=== PATIENT | female | born 1950 | race Caucasian/White ===

== ENCOUNTER 2020-11-22 11:41 | Outpatient (CLI) | payer MEDICARE, SELFPAY ==
--- NOTE | ~2020-11-22 | CT_ITS ---
EXAMINATION: CT brain wo/w con EXAM DATE: 11/22/2020 12:39 INDICATION: [place] pain/ Headaches. Blurred vision. TECHNIQUE: Spiral CT of the head was performed without contrast. Axial, coronal and sagittal images were reviewed. Patient was then injected with 100 cc Omnipaque 350 intravenous contrast and reimaged. Postcontrast axial, coronal, sagittal reformatted images reviewed. The dose-length product (DLP) for this examination was 1210.67 mGy-cm. The exposure was tailored according to patient size, and it erative reconstruction (ASIR) was used as additional dose reduction technique. There is no prior julia dy for comparison. FINDINGS: There is no acute intraparenchymal hemorrhage. No evidence of intraparenchymal brain mass lesion. No evidence of acute infarction. Please note that initial head CT has limited sensitivity f or small or acute infarctions. There is mild to moderate periventricular and subcortical hypodensity, nonspecific but probably related to small vessel ischemic disease. There is mild to moderate promi nence of the sulci and ventricles related to cerebral atrophy. There is intracranial carotid arteri osclerosis. There are no extra-axial collections. There is no mass effect or midline shift. Patien t has had left-sided ocular lens surgery. Soft tissue is unremarkable. The visualized sinuses and mastoid air cells are well aerated. Slight asymmetry in the vascularity to the occipital lobes, left being more prominent but no developm ental venous anomaly, enhancing nidus or other abnormality within the brain parenchyma. No loss of gr ay-white differentiation to suggest this is luxury perfusion from infarction. Additionally, the the i nternal cerebral veins, straight, transverse, sagittal and sigmoid sinuses are patent, nonthrombosed. IMPRESSION: 1. No acute intracranial findings suspected. 2. Some asymmetry in left occipital vascularity without any underlying parenchymal abnormality. Prob ably not clinically significant finding. Reviewed, dictated and finalized at location A. IMPRESSION: 1. No acute intracranial findings suspected. 2. Some asymmetry in left occipital vascularity without any underlying parench ymal abnormality. Probably not clinically significant finding.
[2020-11-22 12:16] LABS: CRP < 0.5 mg/dL (<1.0)
[2020-11-22 12:21] LABS: Erythrocyte Sedimentation Rate 33 mm/hr (0-20)
[2020-11-22 12:23] LABS: Estimated Glomerular Filt Rate > 60
== END 2020-11-22 11:42 | disposition home or self-care (01) ==
LOC: ANHIMG 11:42
PROVIDERS: PCP Internal Medicine; Visit Provider Internal Medicine
DX: R51.9 Headache, unspecified (principal)
CPT/HCPCS: 36415; 70470; 85652; 86140; Q9967

== ENCOUNTER → 2020-11-26 01:26 | Outpatient (CLI) | payer MEDICARE, SELFPAY ==
[2020-11-26 19:13] LABS: SARS-CoV-2 RNA PCR Negative
== END ==
PROVIDERS: Internal Medicine Gastroenterology; PCP Internal Medicine; Visit Provider Otolaryngology
DX: Z01.812 Encounter for preprocedural laboratory examination (principal); Z20.822 Contact with and (suspected) exposure to COVID-19
CPT/HCPCS: C9803; U0003; U0005

== ENCOUNTER 2020-11-29 01:48 | Day surgery (SDC) | payer MEDICARE, SELFPAY ==
[2020-11-25 13:44] VITALS: BMI 29.9
[2020-11-29] VITALS (8 sets, daily range): BP systolic 123–139; BP diastolic 54–71; PULSE 73–81; RESP 16; TEMP 36.8; O2SAT 96–98
--- NOTE | 2020-11-29 06:07 | PM.HPGS ---
History of Present Illness History of Present Illness Consent: Risks, benefits, and alternatives have been discussed and questions answered. Patient agrees to proceed with procedure. Chief complaint: temporal arteritis Narrative: Dyan Larry is a 70 year old female complaints of the headaches by left temporal in nature Review of Systems Review of Systems: All systems reviewed & are unremarkable except as noted in HPI and below PMFSH Past Medical History Medical History Anemia Blood donor BMI 29.0-29.9,adult BMI 30.0-30.9,adult DM type 2 (diabetes mellitus, type 2) Dysphagia Encounter for routine adult health examination with abnormal findings Encounter for routine adult health examination without abnormal findings Follow up Frequent headaches Grief Hearing loss Heme positive stool HTN (hypertension) Hyperlipidemia Insomnia Iron deficiency anemia 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 On nursing home drug therapy Psoriasis Reactive airway disease Varicose veins of both lower extremities Vitamin D deficiency Family History Family History Father Family history of cardiovascular disease Family history of heart disease in male family member before age 55 Social History Social History Smoking status: Never smoker Second hand tobacco smoke exposure: No Alcohol intake: current Drinks per week: 1 Substance use: never Substance use type: does not use Living arrangements: with family Additional living arrangements comments: HUSB Spiritual care concerns: No Meds Home Medications and Allergies Home Medications Medication Instructions Recorded Confirmed Type calcium 600 mg-D3 800 unit-mag11 1 tablet PO DAILY 09/10/19 11/25/20 History 50 vj-pibu-amkthi-jael-s.borat tablet B-complex with vitamin C 1 tablet PO DAILY 02/09/20 11/25/20 History omeprazole 40 mg capsule,delayed 40 mg PO BID #180 cap 11/22/20 11/25/20 Rx release iron polysacch cplx 150 mg 1 cap PO DAILY 11/23/20 11/25/20 History iron-vit B12 25 mcg-folic acid 1 mg capsule apremilast 30 mg PO BID 11/25/20 11/25/20 History atorvastatin 20 mg PO DAILY 11/25/20 11/25/20 History lisinopril 20 mg PO QAM 11/25/20 11/25/20 History metformin 1,000 mg PO BID 11/25/20 11/25/20 History prednisone 60 mg PO DAILY 11/25/20 11/25/20 History psyllium husk [Daily Fiber] 0.4 g PO DAILY 11/25/20 11/25/20 History trazodone 50 mg PO HS 11/25/20 11/25/20 History Allergies Allergy/AdvReac Type Severity Reaction Status Date / Time shellfish derived Allergy Unknown THROAT Verified 11/25/20 13:38 SWELLING EGGS Allergy Mild THROAT Uncoded 11/25/20 13:38 SWELLS LACTOSE AdvReac Mild Diarrhea Uncoded 11/25/20 13:38 Exam Narrative: Exam Narrative: chest clear heart without murmurs prominent left temporal artery pulsation Assessment and Plan Additional Plan plan is a left temporal artery biopsy
--- NOTE | 2020-11-29 06:08 | WPDHPUPDATE1 ---
History and Physical Update Update Date/Time: 11/29/20 06:08 History and Physical has been reviewed, including an updated exam of the patient. There are NO changes in the patient's condition. Risks, benefits, and alternatives have been discussed and questions answered. Patient agrees to proceed with procedure.
[2020-11-29] MEDS: LIDO 1%/EPINEPHRINE 1:100,000 50 ML VIAL INFILTRATE (08:53)
[2020-11-29] MEDS: NEOMYCIN/POLYMYXIN/BACITRACIN OINTMENT 15 GM TUBE 1 APPLIC TOPICAL (08:54)
--- NOTE | 2020-11-29 08:56 | PM.PROC ---
Procedure Note - Detailed Date of procedure: 11/29/20 Pre-op diagnosis: temporal arteritis Post-op diagnosis: same Procedure performed: Left temporal artery biopsy Description of procedure: Patient was prepped and draped with local anesthesia with 1% xylocaine 1-1000 epinephrine the pulse was palpated and incision was made above the dissection carried down to the temporalis fascia the artery was identified clamped on both sides in 2 different areas cut and tied with the 3 0 chromic 3 0 silk sent for pathologic examination fresh incision was then closed with interrupted [place] nylon Anesthesia: GLMA Surgeon: Yehuda Cardoso MD Estimated blood loss (mL): 0 Drains: No Packing: No Pathology: yes Complications: No immediate complications Condition: stable Disposition: PACU Findings: Left temporal artery
--- NOTE | 2020-11-29 10:11 | SUR.PHASEII ---
CALLED DR HENRY FOR FURTHER DC INSTRUCTIONS, MAY SHOWER CAREFULLY, CALL FOR FOLLOW UP APPOINTMENT FOR 1 WEEK TO REMOVE STITCHES.
== END 2020-11-29 09:45 | disposition home or self-care (01) ==
PROVIDERS: PCP Internal Medicine; Visit Provider Otolaryngology
PROC: (CPT 37609; principal; 2020-11-29 08:30)
DX: R51.9 Headache, unspecified (principal); I10 Essential (primary) hypertension; E78.5 Hyperlipidemia, unspecified; E11.9 Type 2 diabetes mellitus without complications; D50.9 Iron deficiency anemia, unspecified; D64.9 Anemia, unspecified; L40.9 Psoriasis, unspecified; E55.9 Vitamin D deficiency, unspecified; Z79.84 Long term (current) use of oral hypoglycemic drugs
CPT/HCPCS: 37609; 88305; 88313; A9270; C9803; U0003; U0005

== ENCOUNTER → 2020-12-06 00:26 | Outpatient (CLI) | payer MEDICARE, SELFPAY ==
[2020-12-06 18:30] LABS: SARS-CoV-2 RNA PCR Negative
== END ==
PROVIDERS: PCP Internal Medicine; Visit Provider Internal Medicine Gastroenterology
DX: Z01.812 Encounter for preprocedural laboratory examination (principal); Z20.822 Contact with and (suspected) exposure to COVID-19
CPT/HCPCS: C9803; U0003; U0005

== ENCOUNTER 2020-12-09 04:37 | Day surgery (SDC) | payer MEDICARE, SELFPAY ==
[2020-11-25 12:48] VITALS: BMI 29.1
[2020-12-09 06:15] VITALS: BP 109/86; PULSE 78; RESP 16; TEMP 36.9; O2SAT 98
[2020-12-09] MEDS: LACTATED RINGERS 1,000 ML 150 ML IV CONT (06:33)
[2020-12-09 06:37] LABS: Glucose Point of Care 89 (65-105)
--- NOTE | 2020-12-09 07:04 | WPDANESEPPF ---
Anes - Initial Pre Proc Eval Procedure: Operation Date: 12/09/20 07:30 Proposed Procedures p Esophagogastroduodenoscopy & Colonoscopy - Low Mistry MD Date/Time: 12/09/20 07:04 Surgeon: Low Mistry MD Pre Op Diagnosis: abn stools, iron def. anemia Patient Data Age: 70 Gender: F Height: 5 ft 1 in Weight: 71 kg Last Vital Signs Temp 98.4 F 12/09/20 06:15 Pulse 78 12/09/20 06:15 Resp 16 12/09/20 06:15 BP 109/86 12/09/20 06:15 Pulse Ox 98 12/09/20 06:15 Allergies Allergy/AdvReac Type Severity Reaction Status Date / Time egg Allergy Severe Swelling Verified 12/09/20 06:13 of Lip/Tongue/Throat shellfish derived Allergy Severe THROAT Verified 12/09/20 06:13 SWELLING EGGS Allergy Mild THROAT Uncoded 12/09/20 06:13 SWELLS LACTOSE AdvReac Mild Diarrhea Uncoded 12/09/20 06:13 Home Medications Medication Instructions Recorded Confirmed Type calcium 600 mg-D3 800 unit-mag11 1 tablet PO DAILY 09/10/19 12/09/20 History 50 jb-dpdh-reovbq-jael-s.borat tablet B-complex with vitamin C 1 tablet PO DAILY 02/09/20 12/09/20 History omeprazole 40 mg capsule,delayed 40 mg PO BID #180 cap 11/22/20 12/09/20 Rx release iron polysacch cplx 150 mg 1 cap PO DAILY 11/23/20 12/09/20 History iron-vit B12 25 mcg-folic acid 1 mg capsule apremilast 30 mg PO BID 11/25/20 12/09/20 History atorvastatin 20 mg PO DAILY 11/25/20 12/09/20 History lisinopril 20 mg PO QAM 11/25/20 12/09/20 History metformin 1,000 mg PO BID 11/25/20 12/09/20 History prednisone 60 mg PO DAILY 11/25/20 12/09/20 History psyllium husk [Daily Fiber] 0.4 g PO DAILY 11/25/20 12/09/20 History trazodone 50 mg PO HS 11/25/20 12/09/20 History Laboratory Tests 12/09/20 06:26 POC Capillary Glucose 89 mg/dl mg/dl (65-105) Patient hx anesthesia problems: none Family hx anesthesia problems: none PMFSH Past Medical History Medical History Anemia Blood donor BMI 29.0-29.9,adult BMI 30.0-30.9,adult DM type 2 (diabetes mellitus, type 2) Dysphagia Encounter for routine adult health examination with abnormal findings Encounter for routine adult health examination without abnormal findings Follow up Frequent headaches Grief Hearing loss Heme positive stool HTN (hypertension) Hyperlipidemia Insomnia Iron deficiency anemia 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 On long-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 drug therapy Psoriasis Reactive airway disease Varicose veins of both lower extremities Vitamin D deficiency Family History Family History Father Family history of cardiovascular disease Family history of heart disease in male family member before age 55 Social History Social History Smoking status: Never smoker Second hand tobacco smoke exposure: No Alcohol intake: current Drinks per week: 1 Substance use: never Substance use type: does not use Living arrangements: with family Additional living arrangements comments: HUSB Spiritual care concerns: No Anes - Eval Final PreProcedure Day of Procedure 12/09/20 07:04 Patient weight: normal Heart: regular rate and rhythm Lungs: clear to auscultation Airway: Mallampati scale class II Neurological: alert and oriented Last oral intake: >/= 8 hours ASA classification: III Emergent: no Anesthetic plan: proceed Anesthesia type and monitoring: general GIVS and standard monitoring Informed Consent: The patient's anesthetic plan and its attendant risks and benefits were discussed with the patient/family/POA. Questions were solicited and answers provided to the satisfaction of the patient/family/POA.
--- NOTE | 2020-12-09 07:28 | PM.HPGS ---
History of Present Illness History of Present Illness Consent: Risks, benefits, and alternatives have been discussed and questions answered. Patient agrees to proceed with procedure. Chief complaint: abn stools, iron def. anemia Narrative: Dyan Larry is a 70 year old female with everardo, fobt + and colon polyps about 4 years ago, using omeprazole Review of Systems Constitutional: Constitutional: Denies headache(s) and Denies weakness Eyes: Eyes: Denies blurry vision ENT: Reports Normal hearing present, Denies headache(s) and Denies neck pain Cardiovascular: Cardiovascular: Denies chest pain and Denies dyspnea Respiratory: Respiratory: Denies dyspnea Gastrointestinal: Gastrointestinal: Reports no additional gastrointestinal complaints Genitourinary: Genitourinary: Denies dysuria Musculoskeletal: Musculoskeletal: Denies neck pain Integumentary/Breasts: Skin/Breast: Denies dry skin Neurologic: Reports Normal hearing present, Denies headache(s) and Denies weakness Psychiatric: Psychiatric: Denies anxiety Endocrine: Endocrine: Denies change in body appearance Hematologic/Lymphatic: Hematologic/Lymphatic: Denies easy bleeding Allergic/Immunologic: Allergic/Immunologic: Denies urticaria PMFSH Past Medical History Medical History Anemia Blood donor BMI 29.0-29.9,adult BMI 30.0-30.9,adult DM type 2 (diabetes mellitus, type 2) Dysphagia Encounter for routine adult health examination with abnormal findings Encounter for routine adult health examination without abnormal findings Follow up Frequent headaches Grief Hearing loss Heme positive stool HTN (hypertension) Hyperlipidemia Insomnia Iron deficiency anemia 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 On [facility] drug therapy Psoriasis Reactive airway disease Varicose veins of both lower extremities Vitamin D deficiency Family History Family History Father Family history of cardiovascular disease Family history of heart disease in male family member before age 55 Social History Social History Smoking status: Never smoker Second hand tobacco smoke exposure: No Alcohol intake: current Drinks per week: 1 Substance use: never Substance use type: does not use Living arrangements: with family Additional living arrangements comments: HUSB Spiritual care concerns: No Meds Home Medications and Allergies Home Medications Medication Instructions Recorded Confirmed Type calcium 600 mg-D3 800 unit-mag11 1 tablet PO DAILY 09/10/19 12/09/20 History 50 hd-kazx-ewyqwi-jael-s.borat tablet B-complex with vitamin C 1 tablet PO DAILY 02/09/20 12/09/20 History omeprazole 40 mg capsule,delayed 40 mg PO BID #180 cap 11/22/20 12/09/20 Rx release iron polysacch cplx 150 mg 1 cap PO DAILY 11/23/20 12/09/20 History iron-vit B12 25 mcg-folic acid 1 mg capsule apremilast 30 mg PO BID 11/25/20 12/09/20 History atorvastatin 20 mg PO DAILY 11/25/20 12/09/20 History lisinopril 20 mg PO QAM 11/25/20 12/09/20 History metformin 1,000 mg PO BID 11/25/20 12/09/20 History prednisone 60 mg PO DAILY 11/25/20 12/09/20 History psyllium husk [Daily Fiber] 0.4 g PO DAILY 11/25/20 12/09/20 History trazodone 50 mg PO HS 11/25/20 12/09/20 History Allergies Allergy/AdvReac Type Severity Reaction Status Date / Time egg Allergy Severe Swelling Verified 12/09/20 06:13 of Lip/Tongue/Throat shellfish derived Allergy Severe THROAT Verified 12/09/20 06:13 SWELLING EGGS Allergy Mild THROAT Uncoded 12/09/20 06:13 SWELLS LACTOSE AdvReac Mild Diarrhea Uncoded 12/09/20 06:13 Vital Signs Vital Signs - 24 hr 12/09/20 06:15 Temperature 98.4 F Pulse Rate 78 Respiratory Rate 16 Blood Pressure 109/86 Pulse Oximetry 98 Exam Const: General: comfortable and no acute d
[2020-12-09] MEDS: BENZOCAINE (*SP) 60 ML SPRAY CAN (HURRICAINE) 1 SPRAY MUCOUS MEM (07:41)
[2020-12-09 07:57] VITALS: BP 121/69; PULSE 72; RESP 19; O2SAT 100
[2020-12-09 08:07] VITALS: BP 125/73; PULSE 70; RESP 17; O2SAT 100
[2020-12-09 08:17] VITALS: BP 124/73; PULSE 75; RESP 16; O2SAT 100
== END 2020-12-09 08:30 | disposition home or self-care (01) ==
PROVIDERS: PCP Internal Medicine; Visit Provider Internal Medicine Gastroenterology
PROC: 0DJ08ZZ Inspection of Upper Intestinal Tract, Via Natural or Artificial Opening Endoscopic (ICD-10-PCS; CPT 43235; principal; 2020-12-09 07:30)
DX: D50.0 Iron deficiency anemia secondary to blood loss (chronic) (principal); K92.1 Melena; D12.3 Benign neoplasm of transverse colon; K29.50 Unspecified chronic gastritis without bleeding; K57.30 Diverticulosis of large intestine without perforation or abscess without bleeding; K64.4 Residual hemorrhoidal skin tags; R13.10 Dysphagia, unspecified; I10 Essential (primary) hypertension; E78.5 Hyperlipidemia, unspecified; L40.9 Psoriasis, unspecified; E55.9 Vitamin D deficiency, unspecified; Z79.84 Long term (current) use of oral hypoglycemic drugs
CPT/HCPCS: 45385; 43239; 88305; C9803; J2704; J7120; U0003; U0005

== ENCOUNTER 2025-03-24 09:48 | Outpatient (CLI) | payer MEDICARE, SELFPAY ==
--- NOTE | ~2025-03-24 | US_ITS ---
LEFT LOWER EXTREMITY VENOUS ULTRASOUND Ordering provider: Spenser Meyer MD History: . HOLD and Call . Comparison: None. FINDINGS: --COMMON FEMORAL: Thrombosed --PROXIMAL SUPERFICIAL FEMORAL: Thrombosed --DISTAL SUPERFICIAL FEMORAL and wall --POPLITEAL: Thrombosed --POSTERIOR TIBIAL: Patent and free of thrombus. Normal compressibility, phasic flow and augmentation . IMPRESSION: DVT is seen in the left lower extremity veins. Physician: Spenser Meyer MD office Was notified with the result of the patient at 11:00 AM on March 24, 2025. Reviewed, dictated and finalized at location A.
--- OUTSIDE RECORDS SUMMARY | 2025-03-24 09:55 | XMS_ITS | Encounter Summary ---
Author Organization [facility] Address [address] [place] [address] Care Team Providers Care Electrical Wirer Name Role Phone Spenser Meyer MD Primary Care Provider [phone] Encounter Details Date Type Department Care Team (Late st Contact Info) Description 11/22/2017 Abstract [facility] CONVERSION [address] [place] [address] , Generic MD Ashlee Social History Tobacco Use Types Packs/Day Years Used Date Smoking Tobacco: Never Assessed Comments Unknown Sex and Gender Information Value Date Recorded Sex Assigned at Not on file Legal Sex Female 7:05 PM CDT Gender Identity Female 12/11/2021 10:28 AM CDT Sexual Orientation Not on file documented as of this encounter Plan of Treatment Not on file documented as of this encounter Visit Diagnoses Not on filedocumented in this encounter Care Teams Electrical Wirer Relationship Specialty Start Date End Date Spenser Meyer MD [address] [facility] [address] [place] [id number] PCP - General INTERNAL MEDICINE 06/11/19 documented as of this encounter
--- OUTSIDE RECORDS SUMMARY | 2025-03-24 09:55 | XMS_ITS | Clinical Summary ---
Author Organization [facility] [address] Address [address] [place] [address] Care Team Providers Care Drivers' Cash Clerk Name Role Phone Spenser Meyer MD Primary Care Provider [phone] Allergies Active Allergy Reactions Criticality Noted Date Comments Egg Unknown 12/07/2021 Medications lisinopriL (PRINIVIL,ZESTR IL) 5 mg tablet Take 1 tablet (5 mg total) by mouth daily 3 Active atorvastatin (LIPITOR) 20 mg tablet Take 1 tablet (20 mg total) by mouth daily 3 Active metFORMIN XR (GLUCOPHAGE XR) 500 mg 24 hr tablet Take 1 tablet (500 mg total) by mouth daily 3 Active ferrous sulfate 325 mg (65 mg of elemental iron) tablet Take 1 tablet (325 mg total) by mouth 2 (two) times a day Active omeprazole (PriLOSEC) 40 mg capsule Take 1 capsule (40 mg total) by mouth 2 (two) times a day 3 Active traZODone (DESYREL) 50 mg tablet TAKE 2 TO 3 TABLETS BY MOUTH EVERY DAY AT BEDTIME 3 Active sertraline (ZOLOFT) 100 mg tablet Take 1 tablet (100 mg total) by mouth every morning 3 Active memantine (NAMENDA) 10 mg tablet Take 1 tablet (10 mg total) by mouth 2 (two) times a day 3 Active rivastigmine (EXELON) 6 mg capsule Take 1 capsule (6 mg total) by mouth 2 (two) times a day 3 Active LORazepam (ATIVAN) 0.5 mg tabletIndicatio ns:anxiety Take 1 tablet (0.5 mg total) by mouth as needed for anxiety (take one tablet 30 minutes prior to the procedure, may take an additional tablet if needed) 2 tablet 4 Active Active Problems Problem Noted Date Diagnosed Date 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 01/29/2023 Memory loss or impairment 01/29/2023 Medical History Medical History Date Comments Hypertension Diabetes mellitus (HCC) Family History Medical History Relation Name Comments Alzheimer's disease Father onset mi d 70s, age 80 Relation Name Status Comments Father Social History Tobacco Use Types Packs/Day Years Used Date Smoking Tobacco: Never Tobacco Cessation:Counseling Given: Not Answered Comments Unknown Sex and Gender Information Value Date Recorded Sex Assigned at Not on file Legal Sex Female 4:53 AM UNARMED SECURITY GUARD Gender Identity Not on file Sexual Orientation Not on file Occupation Industry Job 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 Not on file Not on file N ot on file Obstetrics History Last Filed Vital Signs Vital Sign Reading Time Taken Comments Blood Pressure 120/66 12/02/2023 10:56 AM CDT Pulse 70 12/02/2023 10:56 AM CDT Temperature 36.1 C (96.9 F) 12/02/2023 9:06 AM CDT Respiratory Rate 20 12/02/2023 10:56 AM CDT Oxygen Saturation 99% 12/02/2023 10:56 AM CDT Inhaled Oxygen Concentration - - Weight 59 kg (130 lb) 08/22/2023 10:36 AM UNARMED SECURITY GUARD Height 154.9 cm (5' 0.98) 08/22/2023 10:[address] Body Mass Index 24.58 08/22/2023 10:36 AM UNARMED SECURITY GUARD Plan of Treatment Health Maintenance Due Date Last Done Comments Breast Cancer Screening-Mammogram 1950 Colon Cancer Screening-Colonoscopy 1950 Depression Screening 1950 Fall Risk Assessment 1950 Hepatitis C Screening 1950 Osteoporosis Screening-Bone Density Scan 1950 DTaP/Tdap/Td Vaccine (1 - Tdap) 1962 Hepatitis B Screening 1969 Well Visit 65+ 2016 Covid-19 Vaccine (6 - 2023-2 5 season) 2024 06/21/2022, 02/23/2022, 07/19/2021, Additional history exists Influenza Vaccine (#1) 2025 07/17/2022 Zoster Vaccine Completed 03/31/2018, 12/09, 10/21/2017 Pneumococcal vaccine 65+ Completed 06/26/2021, 09/09 Insurance [employer] MEDICARE [facility] MEDICARE Care Teams Drivers' Cash Clerk Relationship Specialty Start Date End Date Spenser Meyer MD PCP - General Internal Medicine 12/04/22
--- OUTSIDE RECORDS SUMMARY | 2025-03-24 09:55 | XMS_ITS | Clinical Summary ---
Author Organization [facility] Address [address], [facility] [address] [place] [address] Phone Care Team Providers Care Wafer Fabrication Technician Name Role Phone Spenser Meyer MD Primary Care Provider [phone] Noah Hemphill DO Unavailable [phone] Allergies No known active allergies Medications polyethylene glycol (MIRALAX) Powder Use entire 255g bottle with 64oz of clear liquid as directed for colonoscopy prep. 255 g 0 7 Active Social History Tobacco Use Types Packs/Day Years Used Date Smoking Tobacco: Never Smokeless Tobacco: Never Alcohol Use Standard Drinks/Week Comments Yes 1 (1 standard drink = 0.6 oz pur e alcohol) Comments Unknown Sex and Gender Information Value Date Recorded Sex Assigned at Not on file Legal Sex Female 10:13 PM CDT Gender Identity Not on file Sexual Orientation Not on file Plan of Treatment Health Maintenance Due Date Last Done Comments DEXA Bone Density 1950 Hepatitis C Virus (HCV) Screening 1950 TdaP Immunization 1951 Cologuard 2001 Immunochemical Fecal Occult Blood 2001 Mammogram 2001 Pneumococcal Immunization (5 0+ years) (1 of 1 - PCV) 2001 Zoster Immunization (1 of 2) 2001 Colonoscopy 01/24/2022 01/24/2017 Colorectal Cancer Screening 01/24/2022 Influenza Immunization (#1) 2024 SARS-COV-2 Immunization ( season) 2024 Respiratory Syncytial Virus (RSV) Immunization (Adult) (1 - 1-dose 75+ series) 2026 Hepatitis B Immunization Aged Out No longer eligible based on patient's age to complete this topic Meningococcal Immunization (ACWY) Aged Out No longer eligible based on patient's age to complete this topic Rotavirus Immunization Aged Out No lo nger eligible based on patient's age to complete this topic Procedures Procedure Name Priority Date/Time Associated Diagnosis Comments COLONOSCOPY Routine 01/24/2017 from Last 3 Months or Most Recently Relevant to Health Maintenance Results * HM COLONOSCOPY (01/24/2017) Spenser Meyer MD PROCEDURE/MINOR SURGICAL ORDER AVE Final Result from Last 3 Months or Most Recently Relevant to Health Maintenance Insurance [id number] Care Teams Wafer Fabrication Technician Relationship Specialty Start Date End Date Spenser Meyer MD PCP - General Internal Medicine 09/26/16 Noah Hemphill DO Consulting Physician Gastroenterology 01/24/17
--- OUTSIDE RECORDS SUMMARY | 2025-03-24 09:55 | XMS_ITS | Referral Summary ---
Author Organization [facility] [address] Address [address] [place] [address] Care Team Providers Care Flake Drier Name Role Phone Spenser Meyer MD Primary Care Provider [phone] Allergies Active Allergy Reactions Criticality Noted Date [...] disturbance 01/29/2023 Memory loss or impairment 01/29/2023 Social History Tobacco Use Types Packs/Day Years Used Date Smoking Tobacco: Never Tobacco Cessation:Counseling Given: Not Answered Comments Unknown Sex and Gender Information Value Date Recorded Sex Assigned at Not on file Legal Sex Female 4:53 AM GENERAL MACHINIST Gender Identity Not on file Sexual Orientation Not on file Occupation Industry Job 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 End 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[employer], 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 Not on file Not on file N ot on file Last Filed Vital Signs Vital Sign Reading Time Taken Comments Blood Pressure 120/66 12/02/2023 10:56 AM CDT Pulse 70 12/02/2023 10:56 AM CDT Temperature 36.1 C (96.9 F) 12/02/2023 9:06 AM CDT Respiratory Rate 20 12/02/2023 10:56 AM CDT Oxygen Saturation 99% 12/02/2023 10:56 AM CDT Inhaled Oxygen Concentration - - Weight 59 kg (130 lb) 08/22/2023 10:36 AM GENERAL MACHINIST Height 154.9 cm (5' 0.98) 08/22/2023 10:[address] Body Mass Index 24.58 08/22/2023 10:36 AM GENERAL MACHINIST Plan of Treatment Not on file Insurance [employer] MEDICARE A[employer] MED[employer]ARE Care Teams Flake Drier Relationship Specialty Start Date End Date Spenser Meyer MD PCP - General Internal Medicine 12/04/22
--- OUTSIDE RECORDS SUMMARY | 2025-03-24 09:55 | XMS_ITS | Continuity of Care Document ---
Author Organization [facility] Address [address] [place] [address] Care Team Providers Care Leverman Name Role Phone Kayla Donovan MD Primary Care Provider [phone] Encounters Date Type Department Care Team Description 01/21/2025 Orders Only [facility] [address] [place] [address] Kayla Donovan MD 01/21/2025 Travel 01/21/2025 9:20 AM CDT - 01/21/2025 11:59 PM CDT Hospital Encounter [facility] [address] [place] [address] Kayla Doonvan MD Discharge Disposition: Home or Self Care (Routine Discharge) 09/11/2024 9:28 AM SENIOR C WEB DEVELOPER - 09/11/2024 11:59 PM SENIOR C WEB DEVELOPER Hospital Encounter [facility] [address] [place] [address] Kayla Donovan MD Discharge Disposition: Home or Self Care (Routine Discharge) 09/10/[address] [facility] [address] [place] [address] Kayla Donovan MD 09/10/2024 Travel 01/27/[address] [facility] [address] [place] [address] Kayla Donovan MD 01/27/2024 Travel 01/27/2024 1:08 PM CDT - 01/27/2024 11:59 PM CDT Hospital Encounter [facility] [address] [place] [address] Kayla Donovan MD Discharge Disposition: Home or Self Care (Routine Discharge) 09/10/[address] [facility] [address] [place] [address] Kayla Donovan MD 09/10/2023 Travel 09/10/2023 8:00 AM SENIOR C WEB DEVELOPER - 09/10/2023 11:59 PM SENIOR C WEB DEVELOPER Hospital Encounter [facility] [address] [place] [address] Kayla Donovan MD Discharge Disposition: Home or Self Care (Routine Discharge) 04/30/[address] [facility] [address] [address] Kayla Donovan MD 04/30/2023 Travel 04/30/2023 8:41 AM CDT - 04/30/2023 11:59 PM CDT Hospital Encounter [facility] [address] [place] [address] Kayla Donovan MD Discharge Disposition: Home or Self Care (Routine Discharge) 03/09/2023 Travel 03/09/2023 3:54 PM CDT - 03/09/2023 6:05 PM CDT Emergency [facility] Emergency Room [address] [place] [address] Ryan Hernández MD Abdominal Pain Discharge Disposition: Home or Self Care (Routine Discharge) 02/25/2023 Travel 02/25/2023 8:26 AM CDT - 02/25/2023 11:59 PM CDT Hospital Encounter [facility] [address] [place] [address] Kayla Donovan MD Discharge Disposition: Home or Self Care (Routine Discharge) 11/30/2022 Travel 11/30/2022 8:46 AM CDT - 11/30/2022 11:59 PM [place] [address] [facility] [place] [address] Kayla Donovan MD Discharge Disposition: Home or Self Care (Routine Discharge) 11/07/[address] [facility] [address] [place], [place] [address] [address] Kayla Donovna MD 11/07/2022 Travel 11/07/2022 9:47 AM SENIOR C WEB DEVELOPER - 11/07/2022 11:59 PM SENIOR C WEB DEVELOPER Hospital Encounter [facility] [address] [place] [address] Kayla Donovan MD Discharge Disposition: Home or Self Care (Routine Discharge) 06/18/[address] [facility] [address] [facility] [place] [address] Kayla Donovan MD 06/18/2022 Travel 06/18/2022 8:53 AM CDT - 06/18/2022 11:59 PM CDT Hospital En[facility] [address] [facility] [place] [address] Kayla Donovan MD Discharge Disposition: Home or Self Care (Routine Discharge) 02/20/2022 Travel 01/29/2022 Travel 01/29/2022 7:30 AM CDT - 01/29/2022 11:59 PM [place] [address] [facility] [place] [address] Kayla Donovan MD Discharge Disposition: Home or Self Care (Routine Discharge) 01/22/2022 Travel 01/18/[address] [facility] [address] [place] [address] Kayla Donovan MD 01/18/2022 Travel 01/18/2022 10:25 AM CDT - 01/18/2022 11:59 PM CDT Hospital Encounter [facility] [address] [place] [address] Kayla Donovan MD Discharge Disposition: Home or Self Care (Routine Discharge) 01/11/2022 Travel 01/09/2022 Travel 01/06/2022 Travel 01/05/[address] [facility] [address] [place] [address] Kayla Donovan MD 01/05/2022 7:25 AM CDT - 01/05/2022 11:59 PM CDT Hospital Encounter [facility] [address] [place] [address] Kayla Donovan MD Discharge Disposition: Home or Self Care (Routine Discharge) 01/04/2022 Travel 12/29/2021 Travel 12/25/2021 Travel 12/22/2021 Travel 12/21/2021 Travel 12/21/2021 10:43 AM CDT - 12/21/2021 11:59 PM CD[place] [address] [place] [address] Bairon Nam MD Discharge Disposition: Home or Self Care (Routine Discharge) 12/18/2021 Travel 12/18/2021 9:25 AM CDT - 12/18/2021 11:59 PM CDT Hospital Encounter [facility] [address] [place] [address] Kayla Donovan MD Discharge Disposition: Home or Self Care (Routine Discharge) 12/15/2021 Orders Only [facility] [address] [facility] [place] [address] Bairon Nam MD 12/15/2021 1:35 PM CDT - 12/15/2021 11:59 PM CDT Hospital Encounter [facility] [address] [place] [address] Bairon Nam MD Discharge Disposition: Home or Self Care (Routine Discharge) 12/15/2021 Travel 12/12/2021 Travel 12/07/2021 Travel 11/01/[address] [facility] [address] [facility] [place] [address] Kayla Donovan MD 11/01/2021 Travel 11/01/2021 10:00 AM SENIOR C WEB DEVELOPER - 11/01/2021 11:59 PM SENIOR C WEB DEVELOPER Hospital En[facility] [address] [facility] [place] [address] Kayla Donovan MD Discharge Disposition: Home or Self Care (Routine Discharge) 08/25/[address] [address] [facility] [place] [address] Kayla Donovan MD 08/25/2021 Travel 08/25/2021 8:45 AM SENIOR C WEB DEVELOPER - 08/25/2021 11:59 PM SENIOR C WEB DEVELOPER Hospital En[facility] [address] [facility] [place] [address] Kayla Donovan MD Discharge Disposition: Home or Self Care (Routine Discharge) 04/14/[address] [facility] [address] [facility] [place] [address] Kayla Donovan MD 04/14/2021 Travel 04/14/2021 8:44 AM CDT - 04/14/2021 11:59 PM CDT Hospital Encounter [facility] [address] [facility] [place] [place] [address] Kayla Donovan MD Discharge Disposition: Home or Self Care (Routine Discharge) 03/20/[address] [facility] [address] [place] [address] Kayla Donovan MD 03/20/2021 Travel 03/20/2021 12:45 PM CDT - 03/20/2021 11:59 PM CDT Hospital Encounter [facility] [place] [address] Kayla Donovan MD Discharge Disposition: Home or Self Care (Routine Discharge) 03/16/2021 Travel 03/16/2021 7:19 AM CDT - 03/16/2021 11:59 PM CDT Hospital Encounter [facility] [address] [facility] [place] [address] Kayla Donovan MD Discharge Disposition: Home or Self Care (Routine Discharge) 03/07/2021 Travel 03/07/2021 11:25 AM CDT - 03/07/2021 11:59 PM CDT Hospital Encounter [facility] [place] [address] Kayla Donovan MD Discharge Disposition: Home or Self Care (Routine Discharge) 02/02/[address] [facility] [address] [facility] [place] [address] Kayla Donovan MD 02/02/2021 Travel 02/02/2021 8:25 AM CDT - 02/02/2021 11:59 PM CDT Hospital Encounter [facility] [address] [facility] [place] [address] Kayla Donovan MD Discharge Disposition: Home or Self Care (Routine Discharge) 01/10/[address] [facility] [address] [place] [address] Kayla Donovan MD 01/10/2021 Travel 01/10/2021 7:11 AM CDT - 01/10/2021 11:59 PM CDT Hospital Encounter [facility] [address] [place] [address] Kayla Donovan MD Discharge Disposition: Home or Self Care (Routine Discharge) 12/05/[address] [facility] [address] [place] [address] Kayla Donovan MD 12/05/2020 Travel 12/05/2020 8:03 AM CDT - 12/05/2020 11:59 PM CDT Hospital Encounter [facility] [address] [place] [address] Kayla Donovan MD Discharge Disposition: Home or Self Care (Routine Discharge) 11/15/[address] [facility] [place] [address] Kayla Donovan MD 11/15/[address] [facility] [address] [place] [address] Kayla Donovan MD 11/15/2020 Orders Only [facility] [address] [place] [address] Kayla Donovan MD 11/14/2020 9:28 AM SENIOR C WEB DEVELOPER - 11/14/2020 11:59 PM SENIOR C WEB DEVELOPER Hospital En[facility] [address] [place] [address] Kayal Donovan MD Discharge Disposition: Home or Self Care (Routine Discharge) 11/13/2020 9:27 AM SENIOR C WEB DEVELOPER - 11/13/2020 11:59 PM SENIOR C WEB DEVELOPER Hospital Encounter [facility] [address] [facility] [place] [address] Kayla Donovan MD Discharge Disposition: Home or Self Care (Routine Discharge) 11/11/2020 9:25 AM SENIOR C WEB DEVELOPER - 11/11/2020 11:59 PM SENIOR C WEB DEVELOPER Hospital En[facility] [address] [place] [address] Kayla Donovan MD Discharge Disposition: Home or Self Care (Routine Discharge) 11/11/[address] [facility] [address] [place] [address] Kayla Donovan MD 11/11/2020 Travel 11/11/2020 9:13 AM SENIOR C WEB DEVELOPER - 11/11/2020 11:59 PM SENIOR C WEB DEVELOPER Hospital En[facility] [address] [facility] [place] [address] Kayla Donovan MD Discharge Disposition: Home or Self Care (Routine Discharge) 11/08/[address] [facility] [address] [facility] [place] [address] Kayla Donovan MD 11/08/2020 Travel 11/08/2020 7:52 AM SENIOR C WEB DEVELOPER - 11/08/2020 11:59 PM SENIOR C WEB DEVELOPER Hospital Encounter [facility] [address] [place] [address] Kayla Donovan MD Discharge Disposition: Home or Self Care (Routine Discharge) 10/05/2020 Travel 10/05/2020 12:14 PM SENIOR C WEB DEVELOPER - 10/05/2020 11:59 PM SENIOR C WEB DEVELOPER Hospital En[facility] [id number] [place] [address] Hossein Alva MD Discharge Disposition: Home or Self Care (Routine Discharge) 09/07/2020 Travel 09/07/2020 6:00 PM SENIOR C WEB DEVELOPER - 09/07/2020 11:59 PM SENIOR C WEB DEVELOPER Hospital En[facility] [address] [place] [address] Hossein Alva MD Discharge Disposition: Home or Self Care (Routine Discharge) 07/28/2020 Travel 07/28/2020 9:41 AM SENIOR C WEB DEVELOPER - 07/28/2020 11:59 PM SENIOR C WEB DEVELOPER Hospital En[facility] [address] [place] [address] Nneka Pressley MD Discharge Disposition: Home or Self Care (Routine Discharge) 07/13/2020 Travel 07/13/2020 8:45 AM SENIOR C WEB DEVELOPER - 07/13/2020 11:59 PM SENIOR C WEB DEVELOPER Hospital Encounter [facility] [address] [place] [address] Kayla Donovan MD Discharge Disposition: Home or Self Care (Routine Discharge) 06/28/[address] [facility] [address] [facility] [place] [address] Kayla Donovan MD 06/28/2020 Travel 06/28/2020 8:20 AM CDT - 06/28/2020 11:59 PM CDT Hospital Encounter [facility] [address] [place] [address] Kayla Donovan MD Discharge Disposition: Home or Self Care (Routine Discharge) 02/15/2020 Travel 02/15/2020 7:42 AM CDT - 02/15/2020 11:59 PM CDT [place] [address] [place] [address] Kayla Donovan MD Discharge Disposition: Home or Self Care (Routine Discharge) 02/10/[address] [facility] [address] [place] [address] Kayla Donovan MD 02/10/2020 Travel 02/10/2020 8:15 AM CDT - 02/10/2020 11:59 PM CDT Hospital Encounter [facility] [address] [place] [address] Kayla Donovan MD Discharge Disposition: Home or Self Care (Routine Discharge) 02/05/[address] [facility] [address] [place] [address] Kayla Donovan MD 02/05/2020 Travel 02/05/2020 8:00 AM CDT - 02/05/2020 11:59 PM CDT Hospital Encounter [facility] [address] [place] [address] Kayla Donovan MD Discharge Disposition: Home or Self Care (Routine Discharge) 09/05/[address] [facility] [address] [place] [address] Kayla Donovan MD 09/05/2019 8:25 AM SENIOR C WEB DEVELOPER - 09/05/2019 11:59 PM SENIOR C WEB DEVELOPER Hospital Encounter [facility] [address] [place] [address] Kayla Donovan MD Discharge Disposition: Home or Self Care (Routine Discharge) 06/11/[address] [facility] [address] [place] [address] Kayla Donovan MD 06/11/2019 9:25 AM CDT - 06/11/2019 11:59 PM CDT Hospital Encounter [facility] [address] [place] [address] Kayla Donovan MD Discharge Disposition: Home or Self Care (Routine Discharge) 03/19/[address] [facility] [address] [place] [address] Kayla Donovan MD 03/19/2019 7:05 AM CDT - 03/19/2019 11:59 PM CDT Hospital Encounter [facility] [address] [place] [address] Kayla Donovan MD Discharge Disposition: Home or Self Care (Routine Discharge) 09/08/[address] [facility] [address] [place] [address] Kayla Donovan MD 04/30/[address] [facility] [address] [place] [address] Bridget Malik NP 04/26/[address] [facility] [address] [place] [address] 12/31/2017 Abstract [facility] [address] [place] [address] Bridget Malik NP 11/22/2017 Abstract [facility] [address] [place] [address] Gary Marquez MD 11/22/[address] [facility] [address] [place] [address] Kayla Donovan MD 06/24/2017 Abstract [facility] [address] [place] [address] Kayla Donovan MD 04/17/2017 Abstract [facility] [address] [place] [address] Clinton Spicer MD 03/01/2017 Emergency [facility] Emergency Room [address] [place] [address] 02/18/2017 Abstract [facility] [address] [place] [address] Kayla Donovan MD 12/25/[address] [facility] [address] [place] [address] Denisha Martinez MD 09/12/[address] [facility] [address] [place] [address] Kayla Donovan MD 04/12/[address] [facility] [address] [place] [address] Kayla Donovan MD 01/25/[address] [facility] [address] [place] [address] Bridget Malik NP 11/11/2015 Abstract [facility] [address] [place] [address] Kayla Donovan MD 06/28/2015 Abstract [facility] [address] [place] [address] Kayla Donovan MD 06/23/2015 Emergency [facility] Emergency Room [address] [place] [address] 03/12/2015 Emergency [facility] Emergency Room [address] [place] [address] Todd Adames MD 02/28/2015 Abstract [facility] [address] [place] [address] Kayla Donovan MD 11/12/[address] [facility] [address] [place] [address] Bridget Malik NP 11/03/[address] [facility] [address] [facility] [place] [address] Bridget Malik, DAVID 09/04/[address] [facility] [address] [place] [address] Kayla Donovan MD 04/28/[address] [facility] [address] [place] [address] Md Generic Ashlee, 10/20/[address] [facility] [address] [place] [address] Kayla Donovan MD 06/25/[address] [facility] [address] [place] [address] Kayla Donovan MD 06/24/[address] [facility] [address] [place] [address] Kayla Donovan MD 07/02/2001 Abstract [facility] [address] [facility] [place] [address] , Generic Conversion, 06/27/2001 Abstract [facility] [address]15 [place] [address] Md Generic Conversion, 02/10/2000 Abstract [facility] [address] [place] [address] Cristal Gonzalez MD 02/01/2000 [facility] [address] [place] [address] , Generic Conversion, 01/14/1998 [facility] [address] [place] [address] , Generic Conversion, 12/22/1997 [facility] [address] [place] [address] Gary Marquez MD 12/22/1997 [facility] [address] [place] [address] Gary Marquez MD 07/02/1997 [facility] [address] [place] [address] Md Generic ConversionMD Allergies Active Allergy Reactions Criticality Noted Date Comments Egg-Derived Products Unknown 12/07/2021 Medications atorvastatin 20 MG tablet Take 20 mg by mouth nightly at bedtime. Active lisinopril 10 MG tablet Take 10 mg by mouth daily. Active metFORMIN ER, MOD, 1000 MG 24 hr tablet Take 1,000 mg by mouth 2 (two) times daily with meals. Active ferrous sulfate, 65 mg elemental, 325 (65 FE) MG tablet Take 325 mg by mouth 2 (two) times a day. Active omeprazole 40 MG capsule Take 40 mg by mouth 2 (two) times a day. Active traZODone 50 MG tablet Take 50 mg by mouth nightly at bedtime. May take 2 or 3 tabs as needed at HS for sleep Active Apoaequorin (PREVAGEN) 10 MG Cap Active sertraline 100 MG tablet Take one tab PO QAM Active rivastigmine 3 MG capsule Take one cap PO BID with meals Active Immunizations Immunization Administration Dates Next Due MODERNA COVID-19 (12+) MRNA, LNP-S, PF, 100 MCG/ 0.5 ML DOSE 10/05/2020,09/07/2020 Family History Medical History Relation Comments Breast Cancer Neg Hx Social History Smoking Status as of 03/24/2025 Tobacco Use Types Packs/Day Years Used Date Smoking Tobacco: Never Assessed Sex and Gender Information Value Date Recorded Sex Assigned at Not on file Legal Sex Female 7:05 PM CDT Gender Identity Female 12/11/2021 10:28 AM CDT Sexual Orientation Not on file Last Filed Vital Signs Vital Sign Reading Time Taken Comments Blood Pressure 93/44 03/09/2023 3:58 PM CDT Pulse 65 03/09/2023 3:58 PM CDT Temperature 37.1 C (98.7 F) 03/09/2023 3:58 PM CDT Respiratory Rate 20 03/09/2023 3:58 PM CDT Oxygen Saturation 96% 03/09/2023 3:58 PM CDT Inhaled Oxygen Concentration - - Weight 58.5 kg (129 lb) 03/09/2023 3:58 PM CDT Height 154.9 cm (5' 1) 03/09/2023 3:58 PM CDT Body Mass Index 24.37 03/09/2023 3:58 PM CDT Plan of Treatment Not on file Procedures Procedure Name Priority Date/Time Associated Diagnosis Comments COMPREHENSIVE METABOLIC PANEL Routine 01/21/2025 9:26 AM CDT Essential (primary) hypertension Other iron deficiency anemias Diabetes mellitus without complication (CMS/HCC HHS/HCC) CBC W/DIFF AUTOMATED Routine 01/21/2025 9:26 AM CDT Essential (primary) hypertension Other iron deficiency anemias Diabetes mellitus without complication (CMS/HCC HHS/HCC) IRON SAT PANEL (IRON,IBC,%SAT) Routine 01/21/2025 9:26 AM CDT Essential (primary) hypertension Other iron deficiency anemias Diabetes mellitus without complication (CMS/HCC HHS/HCC) FERRITIN Routine 01/21/2025 9:26 AM CDT Essential (primary) hypertension Other iron deficiency anemias Diabetes mellitus without complication (CMS/HCC HHS/HCC) HEMOGLOBIN, GLYCOSYLATED Routine 01/21/2025 9:26 AM CDT Essential (primary) hypertension Other iron deficiency anemias Diabetes mellitus without complication (CMS/HCC HHS/HCC) URINALYSIS, AUTO, COMPLETE Routine 09/11/2024 12:30 PM SENIOR C WEB DEVELOPER Encounter for long-term (current) drug use Other iron deficiency anemia Anemia, unspecified Diabetes mellitus, type II (CMS/HCC HHS/HCC) Hyperlipidemia Vitamin D deficiency VITAMIN D, 25 OH Routine 09/11/2024 9:37 AM SENIOR C WEB DEVELOPER Encounter for long-term (current) drug use Other iron deficiency anemia Anemia, unspecified Diabetes mellitus, type II (CMS/HCC HHS/HCC) Hyperlipidemia Vitamin D deficiency LIPID PANEL Routine 09/11/2024 9:37 AM SENIOR C WEB DEVELOPER Encounter for long-term (current) drug use Other iron deficiency anemia Anemia, unspecified Diabetes mellitus, type II (CMS/HCC HHS/HCC) Hyperlipidemia Vitamin D deficiency HEMOGLOBIN, GLYCOSYLATED Routine 09/11/2024 9:37 AM SENIOR C WEB DEVELOPER Encounter for long-term (current) drug use Other iron deficiency anemia Anemia, unspecified Diabetes mellitus, type II (CMS/HCC HHS/HCC) Hyperlipidemia Vitamin D deficiency IRON SAT PANEL (IRON,IBC,%SAT) Routine 09/11/2024 9:37 AM SENIOR C WEB DEVELOPER Encounter for long-term (current) drug use Other iron deficiency anemia Anemia, unspecified Diabetes mellitus, type II (CMS/HCC HHS/HCC) Hyperlipidemia Vitamin D deficiency FERRITIN Routine 09/11/2024 9:37 AM SENIOR C WEB DEVELOPER Encounter for long-term (current) drug use Other iron deficiency anemia Anemia, unspecified Diabetes mellitus, type II (CMS/HCC HHS/HCC) Hyperlipidemia Vitamin D deficiency THYROID STIM HORMONE TSH Routine 01/27/2024 1:15 PM CDT Encounter for long-term (current) drug use Encounter for screening for other suspected endocrine disorder Essential (primary) hypertension Diabetes mellitus without complication Hyperlipidemia COMPREHENSIVE METABOLIC PANEL Routine 01/27/2024 1:15 PM CDT Encounter for long-term (current) drug use Encounter for screening for other suspected endocrine disorder Essential (primary) hypertension Diabetes mellitus without complication Hyperlipidemia THYROXINE, FREE (FT4) Routine 01/27/2024 1:15 PM CDT Encounter for long-term (current) drug use Encounter for screening for other suspected endocrine disorder Essential (primary) hypertension Diabetes mellitus without complication Hyperlipidemia HEMOGLOBIN, GLYCOSYLATED Routine 01/27/2024 1:15 PM CDT Encounter for long-term (current) drug use Encounter for screening for other suspected endocrine disorder Essential (primary) hypertension Diabetes mellitus without complication Hyperlipidemia LIPID PANEL Routine 01/27/2024 1:15 PM CDT Encounter for long-term (current) drug use Encounter for screening for other suspected endocrine disorder Essential (primary) hypertension Diabetes mellitus without complication Hyperlipidemia LIPID PANEL Routine 09/10/2023 8:19 AM SENIOR C WEB DEVELOPER Hyperlipemia Essential hypertension, malignant Diabetes mellitus COMPREHENSIVE METABOLIC PANEL Routine 09/10/2023 8:19 AM SENIOR C WEB DEVELOPER Hyperlipemia Essential hypertension, malignant Diabetes mellitus HEMOGLOBIN, GLYCOSYLATED Routine 09/10/2023 8:19 AM SENIOR C WEB DEVELOPER Hyperlipemia Essential hypertension, malignant Diabetes mellitus THYROXINE, FREE (FT4) Routine 04/30/2023 8:52 AM CDT Encounter for long-term (current) use of medications Encounter for screening for other suspected endocrine disorder Vitamin D deficiency Essential (primary) hypertension Type 2 diabetes mellitus without complication Mixed hyperlipidemia VITAMIN D, 25 OH Routine 04/30/2023 8:52 AM CDT Encounter for long-term (current) use of medications Encounter for screening for other suspected endocrine disorder Vitamin D deficiency Essential (primary) hypertension Type 2 diabetes mellitus without complication Mixed hyperlipidemia THYROID STIM HORMONE TSH Routine 04/30/2023 8:52 AM CDT Encounter for long-term (current) use of medications Encounter for screening for other suspected endocrine disorder Vitamin D deficiency Essential (primary) hypertension Type 2 diabetes mellitus without complication Mixed hyperlipidemia CBC W/DIFF AUTOMATED Routine 04/30/2023 8:52 AM CDT Encounter for long-term (current) use of medications Encounter for screening for other suspected endocrine disorder Vitamin D deficiency Essential (primary) hypertension Type 2 diabetes mellitus without complication Mixed hyperlipidemia COMPREHENSIVE METABOLIC PANEL Routine 04/30/2023 8:52 AM CDT Encounter for long-term (current) use of medications Encounter for screening for other suspected endocrine disorder Vitamin D deficiency Essential (primary) hypertension Type 2 diabetes mellitus without complication Mixed hyperlipidemia HEMOGLOBIN, GLYCOSYLATED Routine 04/30/2023 8:52 AM CDT Encounter for long-term (current) use of medications Encounter for screening for other suspected endocrine disorder Vitamin D deficiency Essential (primary) hypertension Type 2 diabetes mellitus without complication Mixed hyperlipidemia LIPID PANEL Routine 04/30/2023 8:52 AM CDT Encounter for long-term (current) use of medications Encounter for screening for other suspected endocrine disorder Vitamin D deficiency Essential (primary) hypertension Type 2 diabetes mellitus without complication Mixed hyperlipidemia CT ABD+PEL W CON STAT 03/09/2023 5:11 PM CDT LIPASE STAT 03/09/2023 4:09 PM CDT COMPREHENSIVE METABOLIC PANEL STAT 03/09/2023 4:09 PM CDT CBC W/DIFF AUTOMATED STAT 03/09/2023 4:09 PM CDT MG SCREENING W ALINE HERIBERTO DIGI Routine 02/25/2023 8:44 AM CDT Encounter for screening mammogram for malignant neoplasm of breast CT HEAD WO CON Routine 11/30/2022 9:03 AM CDT Injury of face Head injury LIPID PANEL Routine 11/07/2022 10:15 AM SENIOR C WEB DEVELOPER Mixed hyperlipidemia Essential (primary) hypertension Encounter for long-term (current) drug use Diabetes mellitus HEMOGLOBIN, GLYCOSYLATED Routine 11/07/2022 10:15 AM SENIOR C WEB DEVELOPER Mixed hyperlipidemia Essential (primary) hypertension Encounter for long-term (current) drug use Diabetes mellitus BASIC METABOLIC PANEL Routine 11/07/2022 10:15 AM SENIOR C WEB DEVELOPER Mixed hyperlipidemia Essential (primary) hypertension Encounter for long-term (current) drug use Diabetes mellitus THYROXINE, FREE (FT4) Routine 11/07/2022 10:15 AM SENIOR C WEB DEVELOPER Mixed hyperlipidemia Essential (primary) hypertension Encounter for long-term (current) drug use Diabetes mellitus THYROID STIM HORMONE TSH Routine 11/07/2022 10:15 AM SENIOR C WEB DEVELOPER Mixed hyperlipidemia Essential (primary) hypertension Encounter for long-term (current) drug use Diabetes mellitus CBC W/DIFF AUTOMATED Routine 06/18/2022 9:19 AM CDT Diabetes mellitus Encounter for long-term (current) drug use Vitamin B12 deficiency (non anemic) Mixed hyperlipidemia Essential hypertension, malignant Vitamin D deficiency COMPREHENSIVE METABOLIC PANEL Routine 06/18/2022 9:19 AM CDT Diabetes mellitus Encounter for long-term (current) drug use Vitamin B12 deficiency (non anemic) Mixed hyperlipidemia Essential hypertension, malignant Vitamin D deficiency LIPID PANEL Routine 06/18/2022 9:19 AM CDT Diabetes mellitus Encounter for long-term (current) drug use Vitamin B12 deficiency (non anemic) Mixed hyperlipidemia Essential hypertension, malignant Vitamin D deficiency VITAMIN D, 25 OH Routine 06/18/2022 9:19 AM CDT Diabetes mellitus Encounter for long-term (current) drug use Vitamin B12 deficiency (non anemic) Mixed hyperlipidemia Essential hypertension, malignant Vitamin D deficiency VITAMIN B12 / FOLATE Routine 06/18/2022 9:19 AM CDT Diabetes mellitus Encounter for long-term (current) drug use Vitamin B12 deficiency (non anemic) Mixed hyperlipidemia Essential hypertension, malignant Vitamin D deficiency THYROXINE, FREE (FT4) Routine 06/18/2022 9:19 AM CDT Diabetes mellitus Encounter for long-term (current) drug use Vitamin B12 deficiency (non anemic) Mixed hyperlipidemia Essential hypertension, malignant Vitamin D deficiency THYROID STIM HORMONE TSH Routine 06/18/2022 9:19 AM CDT Diabetes mellitus Encounter for long-term (current) drug use Vitamin B12 deficiency (non anemic) Mixed hyperlipidemia Essential hypertension, malignant Vitamin D deficiency HEMOGLOBIN, GLYCOSYLATED Routine 06/18/2022 9:19 AM CDT Diabetes mellitus Encounter for long-term (current) drug use Vitamin B12 deficiency (non anemic) Mixed hyperlipidemia Essential hypertension, malignant Vitamin D deficiency CREATININE WHOLE BLOOD Routine 01/29/2022 6:49 PM CDT Abnormal loss of weight CT CHEST W CON Routine 01/29/2022 9:24 AM CDT Abnormal loss of weight CT ABD+PEL W CON Routine 01/29/2022 9:24 AM CDT Abnormal weight loss URINE BACTERIA CULTURE Routine 01/18/2022 10:51 AM CDT URINALYSIS WI REFLEX TO CULTURE Routine 01/18/2022 10:51 AM CDT Essential (primary) hypertension Encounter for long-term (current) drug use Encounter for screening for other suspected endocrine disorder Type 2 diabetes mellitus without complication Mixed hyperlipidemia Other iron deficiency anemia Abnormal weight loss Vitamin D deficiency VITAMIN D, 25 OH Routine 01/18/2022 10:3 5 AM CDT Essential (primary) hypertension Encounter for long-term (current) drug use Encounter for screening for other suspected endocrine disorder Type 2 diabetes mellitus without complication Mixed hyperlipidemia Other iron deficiency anemia Abnormal weight loss Vitamin D deficiency PREALBUMIN Routine 01/18/2022 10:35 AM CDT Essential (primary) hypertension Encounter for long-term (current) drug use Encounter for screening for other suspected endocrine disorder Type 2 diabetes mellitus without complication Mixed hyperlipidemia Other iron deficiency anemia Abnormal weight loss Vitamin D deficiency IRON SAT PANEL (IRON,IBC,%SAT) Routine 01/18/2022 10:35 AM CDT Essential (primary) hypertension Encounter for long-term (current) drug use Encounter for screening for other suspected endocrine disorder Type 2 diabetes mellitus without complication Mixed hyperlipidemia Other iron deficiency anemia Abnormal weight loss Vitamin D deficiency FERRITIN Routine 01/18/2022 10:35 AM CDT Essential (primary) hypertension Encounter for long-term (current) drug use Encounter for screening for other suspected endocrine disorder Type 2 diabetes mellitus without complication Mixed hyperlipidemia Other iron deficiency anemia Abnormal weight loss Vitamin D deficiency LIPID PANEL Routine 01/18/2022 10:35 AM CDT Essential (primary) hypertension Encounter for long-term (current) drug use Encounter for screening for other suspected endocrine disorder Type 2 diabetes mellitus without complication Mixed hyperlipidemia Other iron deficiency anemia Abnormal weight loss Vitamin D deficiency HEMOGLOBIN, GLYCOSYLATED Routine 01/18/2022 10:35 AM CDT Essential (primary) hypertension Encounter for long-term (current) drug use Encounter for screening for other suspected endocrine disorder Type 2 diabetes mellitus without complication Mixed hyperlipidemia Other iron deficiency anemia Abnormal weight loss Vitamin D deficiency THYROXINE, FREE (FT4) Routine 01/18/2022 10:35 AM CDT Essential (primary) hypertension Encounter for long-term (current) drug use Encounter for screening for other suspected endocrine disorder Type 2 diabetes mellitus without complication Mixed hyperlipidemia Other iron deficiency anemia Abnormal weight loss Vitamin D deficiency COMPREHENSIVE METABOLIC PANEL Routine 01/18/2022 10:35 AM CDT Essential (primary) hypertension Encounter for long-term (current) drug use Encounter for screening for other suspected endocrine disorder Type 2 diabetes mellitus without complication Mixed hyperlipidemia Other iron deficiency anemia Abnormal weight loss Vitamin D deficiency CBC W/DIFF AUTOMATED Routine 01/18/2022 10:35 AM CDT Essential (primary) hypertension Encounter for long-term (current) drug use Encounter for screening for other suspected endocrine disorder Type 2 diabetes mellitus without complication Mixed hyperlipidemia Other iron deficiency anemia Abnormal weight loss Vitamin D deficiency THYROID STIM HORMONE TSH Routine 01/05/2022 7:32 AM CDT Need for prophylactic chemotherapy VITAMIN B12 / FOLATE Routine 01/05/2022 7:32 AM CDT Need for prophylactic chemotherapy CT HEAD WO CON Routine 12/21/2021 10:59 AM CDT Dementia of the Alzheimer's type, with late onset, with delirium MG SCREENING W ALINE HERIBERTO DIGI Routine 12/18/2021 9:50 AM CDT Visit for screening mammogram TSH W/REFLEX Routine 12/15/2021 1:52 PM CDT Encounter for long-term (current) drug use VITAMIN B12 / FOLATE Routine 12/15/2021 1:52 PM CDT Encounter for long-term (current) drug use FERRITIN Routine 11/01/2021 10:07 AM SENIOR C WEB DEVELOPER Iron deficiency anemia, unspecified IRON SAT PANEL (IRON,IBC,%SAT) Routine 11/01/2021 10:07 AM SENIOR C WEB DEVELOPER Iron deficiency anemia, unspecified CBC W/DIFF AUTOMATED Routine 11/01/2021 10:07 AM SENIOR C WEB DEVELOPER Iron deficiency anemia, unspecified COMPREHENSIVE METABOLIC PANEL Routine 08/25/2021 8:58 AM SENIOR C WEB DEVELOPER Giant cell arteritis Encounter for long-term (current) drug use Type 2 diabetes mellitus Mixed hyperlipidemia Essential (primary) hypertension Other iron deficiency anemias Vitamin D deficiency CBC W/DIFF AUTOMATED Routine 08/25/2021 8:58 AM SENIOR C WEB DEVELOPER Giant cell arteritis Encounter for long-term (current) drug use Type 2 diabetes mellitus Mixed hyperlipidemia Essential (primary) hypertension Other iron deficiency anemias Vitamin D deficiency FERRITIN Routine 08/25/2021 8:58 AM SENIOR C WEB DEVELOPER Giant cell arteritis Encounter for long-term (current) drug use Type 2 diabetes mellitus Mixed hyperlipidemia Essential (primary) hypertension Other iron deficiency anemias Vitamin D deficiency IRON SAT PANEL (IRON,IBC,%SAT) Routine 08/25/2021 8:58 AM SENIOR C WEB DEVELOPER Giant cell arteritis Encounter for long-term (current) drug use Type 2 diabetes mellitus Mixed hyperlipidemia Essential (primary) hypertension Other iron deficiency anemias Vitamin D deficiency LIPID PANEL Routine 08/25/2021 8:58 AM SENIOR C WEB DEVELOPER Giant cell arteritis Encounter for long-term (current) drug use Type 2 diabetes mellitus Mixed hyperlipidemia Essential (primary) hypertension Other iron deficiency anemias Vitamin D deficiency VITAMIN D, 25 OH Routine 08/25/2021 8:58 AM SENIOR C WEB DEVELOPER Giant cell arteritis Encounter for long-term (current) drug use Type 2 diabetes mellitus Mixed hyperlipidemia Essential (primary) hypertension Other iron deficiency anemias Vitamin D deficiency HEMOGLOBIN, GLYCOSYLATED Routine 08/25/2021 8:58 AM SENIOR C WEB DEVELOPER Giant cell arteritis Encounter for long-term (current) drug use Type 2 diabetes mellitus Mixed hyperlipidemia Essential (primary) hypertension Other iron deficiency anemias Vitamin D deficiency C-REACTIVE PROTEIN Routine 08/25/2021 8: 58 AM SENIOR C WEB DEVELOPER Other giant cell arteritis SED RATE, ERYTHROCYTE (ESR) Routine 08/25/2021 8:58 AM SENIOR C WEB DEVELOPER Other giant cell arteritis CBC W/DIFF AUTOMATED Routine 04/14/2021 9:02 AM CDT Other iron deficiency anemia C-REACTIVE PROTEIN Routine 04/14/2021 9: 02 AM CDT Other giant cell arteritis SED RATE, ERYTHROCYTE (ESR) Routine 04/14/2021 9:02 AM CDT Other giant cell arteritis BASIC METABOLIC PANEL Routine 04/14/2021 9:02 AM CDT Other giant cell arteritis HC STOOL CULTURE OTH SRC Routine 03/20/2021 1:02 PM CDT Diarrhea STOOL FOR WBC Routine 03/20/2021 1:02 PM CDT Diarrhea HC OVA & PARASITE W/STAIN-90 Routine 03/20/2021 1:02 PM CDT Diarrhea HC EIA QL CLOS DIFF TOXIN AG Routine 03/20/2021 1:02 PM CDT Diarrhea MISCELLANEOUS LAB TEST Routine 03/20/2021 1:02 PM CDT Diarrhea CBC W/DIFF AUTOMATED Routine 03/20/2021 1:02 PM CDT Iron deficiency anemia, unspecified IRON SAT PANEL (IRON,IBC,%SAT) Routine 03/20/2021 1:02 PM CDT Iron deficiency anemia, unspecified FERRITIN Routine 03/20/2021 1:02 PM CDT Iron deficiency anemia, unspecified C-REACTIVE PROTEIN Routine 03/16/2021 7: 31 AM CDT Other giant cell arteritis SED RATE, ERYTHROCYTE (ESR) Routine 03/16/2021 7:31 AM CDT Other giant cell arteritis BASIC METABOLIC PANEL Routine 03/16/2021 7:31 AM CDT Other giant cell arteritis C-REACTIVE PROTEIN Routine 03/07/2021 11 :28 AM CDT Other giant cell arteritis SED RATE, ERYTHROCYTE (ESR) Routine 03/07/2021 11:28 AM CDT Other giant cell arteritis BASIC METABOLIC PANEL Routine 03/07/2021 11:28 AM CDT Other giant cell arteritis C-REACTIVE PROTEIN Routine 02/02/2021 8: 33 AM CDT Other giant cell arteritis SED RATE, ERYTHROCYTE (ESR) Routine 02/02/2021 8:33 AM CDT Other giant cell arteritis BASIC METABOLIC PANEL Routine 02/02/2021 8:33 AM CDT Other giant cell arteritis C-REACTIVE PROTEIN Routine 01/10/2021 7: 22 AM CDT Other giant cell arteritis SED RATE, ERYTHROCYTE (ESR) Routine 01/10/2021 7:22 AM CDT Other giant cell arteritis BASIC METABOLIC PANEL Routine 01/10/2021 7:22 AM CDT Other giant cell arteritis SED RATE, ERYTHROCYTE (ESR) Routine 12/05/2020 8:09 AM CDT Other giant cell arteritis C-REACTIVE PROTEIN Routine 12/05/2020 8: 09 AM CDT Other giant cell arteritis BASIC METABOLIC PANEL Routine 12/05/2020 8:09 AM CDT Other giant cell arteritis CBC W/DIFF AUTOMATED Routine 12/05/2020 8:09 AM CDT Other giant cell arteritis OCCULT BLOOD, FECES Routine 11/14/2020 2 :00 PM SENIOR C WEB DEVELOPER Anemia, unspecified OCCULT BLOOD, FECES Routine 11/13/2020 2 :55 PM SENIOR C WEB DEVELOPER Anemia, unspecified OCCULT BLOOD, FECES Routine 11/11/2020 1 1:30 AM SENIOR C WEB DEVELOPER Anemia, unspecified IRON SAT PANEL (IRON,IBC,%SAT) Routine 11/11/2020 9:36 AM SENIOR C WEB DEVELOPER Anemia, unspecified FERRITIN Routine 11/11/2020 9:36 AM SENIOR C WEB DEVELOPER Anemia, unspecified CBC W/DIFF AUTOMATED Routine 11/08/2020 9:07 AM SENIOR C WEB DEVELOPER 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 Vitamin D deficiency Diabetes mellitus without complication Essential hypertension Mixed hyperlipidemia VITAMIN D, 25 OH Routine 11/08/2020 9:07 AM SENIOR C WEB DEVELOPER [facility] ([facility] drug therapy Vitamin D deficiency Diabetes mellitus without complication Essential hypertension Mixed hyperlipidemia COMPREHENSIVE METABOLIC PANEL Routine 11/08/2020 9:07 AM SENIOR C WEB DEVELOPER [facility] (current[facility] drug therapy Vitamin D deficiency Diabetes mellitus without complication Essential hypertension Mixed hyperlipidemia LIPID PANEL Routine 11/08/2020 9:07 AM SENIOR C WEB DEVELOPER [facility] (current) drug therapy Vitamin D deficiency Diabetes mellitus without complication Essential hypertension Mixed hyperlipidemia HEMOGLOBIN, GLYCOSYLATED Routine 11/08/2020 9:07 AM SENIOR C WEB DEVELOPER Other [facility] (current[facility] drug therapy Vitamin D deficiency Diabetes mellitus without complication Essential hypertension Mixed hyperlipidemia THYROXINE, FREE (FT4) Routine 11/08/2020 9:07 AM SENIOR C WEB DEVELOPER 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 Vitamin D deficiency Diabetes mellitus without complication Essential hypertension Mixed hyperlipidemia THYROID STIM HORMONE TSH Routine 11/08/2020 9:07 AM SENIOR C WEB DEVELOPER 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 Vitamin D deficiency Diabetes mellitus without complication Essential hypertension Mixed hyperlipidemia MG SCREENING W ALINE HERIBERTO DIGI Routine 07/28/2020 10:05 AM SENIOR C WEB DEVELOPER Visit for screening mammogram XR ESOPHAGRAM/BARIUM SWALLOW Routine 07/13/2020 10:14 AM SENIOR C WEB DEVELOPER Difficulty swallowing FERRITIN Routine 06/28/2020 8:31 AM CDT Iron deficiency anemia secondary to inadequate dietary iron intake Need for prophylactic chemotherapy IRON SAT PANEL (IRON,IBC,%SAT) Routine 06/28/2020 8:31 AM CDT Iron deficiency anemia secondary to inadequate dietary iron intake Need for prophylactic chemotherapy CBC W/DIFF AUTOMATED Routine 06/28/2020 8:31 AM CDT Iron deficiency anemia secondary to inadequate dietary iron intake Need for prophylactic chemotherapy HEMOGLOBIN, GLYCOSYLATED Routine 06/28/2020 8:31 AM CDT Iron deficiency anemia secondary to inadequate dietary iron intake Need for prophylactic chemotherapy COMPREHENSIVE METABOLIC PANEL Routine 06/28/2020 8:31 AM CDT Iron deficiency anemia secondary to inadequate dietary iron intake Need for prophylactic chemotherapy LIPID PANEL Routine 06/28/2020 8:31 AM CDT Iron deficiency anemia secondary to inadequate dietary iron intake Need for prophylactic chemotherapy CT HEAD WO CON Routine 02/15/2020 7:58 AM CDT Memory loss BASIC METABOLIC PANEL Routine 02/10/2020 8:26 AM CDT Diabetes mellitus Mixed hyperlipidemia Encounter for long-term (current) use of other medications HEMOGLOBIN, GLYCOSYLATED Routine 02/10/2020 8:26 AM CDT Diabetes mellitus Mixed hyperlipidemia Encounter for long-term (current) use of other medications LIPID PANEL Routine 02/10/2020 8:26 AM CDT Diabetes mellitus Mixed hyperlipidemia Encounter for long-term (current) use of other medications ALBUMIN URINE RANDOM W/CREATININE Routine 02/10/2020 8:26 AM CDT Diabetes mellitus Mixed hyperlipidemia Encounter for long-term (current) use of other medications THYROXINE, FREE (FT4) Routine 02/10/2020 8:26 AM CDT Diabetes mellitus Mixed hyperlipidemia Encounter for long-term (current) use of other medications THYROID STIM HORMONE TSH STAT 02/10/2020 8:26 AM CDT Diabetes mellitus Mixed hyperlipidemia Encounter for long-term (current) use of other medications URINALYSIS MICRO ONLY Routine 02/10/2020 8:26 AM CDT Diabetes mellitus Mixed hyperlipidemia Encounter for long-term (current) use of other medications IRON SAT PANEL (IRON,IBC,%SAT) Routine 02/05/2020 8:21 AM CDT Hypouricemia HOMOCYSTEINE Routine 02/05/2020 8:21 AM CDT Hypouricemia FERRITIN Routine 02/05/2020 8:21 AM CDT Hypouricemia CBC W/DIFF AUTOMATED Routine 02/05/2020 8:21 AM CDT Hypouricemia URINALYSIS MICRO ONLY Today 09/05/2019 8:33 AM SENIOR C WEB DEVELOPER URINALYSIS Today 09/05/2019 8:33 AM SENIOR C WEB DEVELOPER Essential hypertension, malignant Encounter for long-term (current) use of other medications Mixed hyperlipidemia Diabetes mellitus ALBUMIN URINE RANDOM W/CREATININE Routine 09/05/2019 8:33 AM SENIOR C WEB DEVELOPER Essential hypertension, malignant Encounter for long-term (current) use of other medications Mixed hyperlipidemia Diabetes mellitus LIPID PANEL Routine 09/05/2019 8:33 AM SENIOR C WEB DEVELOPER Essential hypertension, malignant Encounter for long-term (current) use of other medications Mixed hyperlipidemia Diabetes mellitus HOMOCYSTEINE Routine 09/05/2019 8:33 AM SENIOR C WEB DEVELOPER Essential hypertension, malignant Encounter for long-term (current) use of other medications Mixed hyperlipidemia Diabetes mellitus HEMOGLOBIN, GLYCOSYLATED Routine 09/05/2019 8:33 AM SENIOR C WEB DEVELOPER Essential hypertension, malignant Encounter for long-term (current) use of other medications Mixed hyperlipidemia Diabetes mellitus CBC W/DIFF AUTOMATED Routine 09/05/2019 8:33 AM SENIOR C WEB DEVELOPER Essential hypertension, malignant Encounter for long-term (current) use of other medications Mixed hyperlipidemia Diabetes mellitus BASIC METABOLIC PANEL Routine 09/05/2019 8:33 AM SENIOR C WEB DEVELOPER Essential hypertension, malignant Encounter for long-term (current) use of other medications Mixed hyperlipidemia Diabetes mellitus BASIC METABOLIC PANEL Routine 06/11/2019 9:34 AM CDT Encounter for long-term (current) drug use Benign hypertension CBC W/DIFF AUTOMATED Routine 06/11/2019 9:34 AM CDT Encounter for long-term (current) drug use Benign hypertension FERRITIN Routine 06/11/2019 9:34 AM CDT Encounter for MEKHI (erythropoietin stimulating agent) anemia management Encounter for long-term (current) drug use Benign hypertension IRON SAT PANEL (IRON,IBC,%SAT) Routine 06/11/2019 9:34 AM CDT Encounter for MEKHI (erythropoietin stimulating agent) anemia management Encounter for long-term (current) drug use Benign hypertension VITAMIN D, 25 OH Routine 03/19/2019 8:16 AM CDT Diabetes mellitus HEPATIC FUNCTION PANEL Routine 03/19/2019 8:16 AM CDT Diabetes mellitus LIPID PANEL Routine 03/19/2019 8:16 AM CDT Diabetes mellitus HEMOGLOBIN, GLYCOSYLATED Routine 03/19/2019 8:16 AM CDT Diabetes mellitus BASIC METABOLIC PANEL Routine 03/19/2019 8:16 AM CDT Diabetes mellitus LIPID PANEL Routine 09/08/2018 10:12 AM SENIOR C WEB DEVELOPER HEMOGLOBIN, GLYCOSYLATED Routine 09/08/2018 10:12 AM SENIOR C WEB DEVELOPER BASIC METABOLIC PANEL Routine 09/08/2018 10:12 AM SENIOR C WEB DEVELOPER VITAMIN D, 25 OH Routine 04/26/2018 9:02 AM CDT THYROID STIM HORMONE TSH Routine 04/26/2018 9:02 AM CDT THYROXINE, FREE (FT4) Routine 04/26/2018 9:02 AM CDT HEPATIC FUNCTION PANEL Routine 04/26/2018 9:02 AM CDT LIPID PANEL Routine 04/26/2018 9:02 AM CDT CBC, AUTO, NO DIFF Routine 04/26/2018 9: 02 AM CDT HEMOGLOBIN, GLYCOSYLATED Routine 04/26/2018 9:02 AM CDT BASIC METABOLIC PANEL Routine 04/26/2018 9:02 AM CDT HEPATIC FUNCTION PANEL Routine 11/22/2017 10:27 AM CDT LIPID W/CALC LDL Routine 11/22/2017 10:2 7 AM CDT CBC, AUTO, NO DIFF Routine 11/22/2017 10 :27 AM CDT HEMOGLOBIN, GLYCOSYLATED Routine 11/22/2017 10:27 AM CDT BASIC METABOLIC PANEL Routine 11/22/2017 10:27 AM CDT LIPID W/CALC LDL Routine 06/24/2017 9:42 AM CDT HEMOGLOBIN, GLYCOSYLATED Routine 06/24/2017 9:42 AM CDT BASIC METABOLIC PANEL Routine 06/24/2017 9:42 AM CDT POCT GLUCOSE - DOCKED DEVICE Routine 04/17/2017 7:15 AM CDT URINALYSIS MICRO ONLY Routine 02/18/2017 11:35 AM CDT URINALYSIS Routine 02/18/2017 11:35 AM CDT LIPID W/CALC LDL Routine 02/18/2017 11:3 5 AM CDT CBC, AUTO, NO DIFF Routine 02/18/2017 11 :35 AM CDT HEMOGLOBIN, GLYCOSYLATED Routine 02/18/2017 11:35 AM CDT BASIC METABOLIC PANEL Routine 02/18/2017 11:35 AM CDT Results * HEMOGLOBIN, GLYCOSYLATED (01/21/2025 9:26 AM CDT) Only the most recent of19 resultswithin the time period is included. HGB A1C 5.1 <5.7 % 01/21/2025 10:06 AM CDT [facility] Comment: INCREASED RISK OF DIABETES <5.7% NON-DIABETES 5.7-6.4% INCREASED RISK FOR FUTURE DIABETES > OR = 6.5 CONSISTENT WITH DIABETES STANDARDS OF MEDICAL CARE IN DIABETES-2010 DIABETES CARE, 33(SUPP 1): S1-S61,2009 ESTIMATED AVG GLUCOSE 100 mg/dL 01/21/2025 10:06 AM CDT [facility] 01/21/2025 9:26 AM CDT us Kayla Donovan MD LABORATORY Final Result Performing Organization Address City/[facility] Co de Phone Number [facility] [address] [place] [address], [place] [phone] * (ABNORMAL) IRON SAT PANEL (IRON,IBC,%SAT) (01/21/2025 9:26 AM CDT) Only the most recent of10 resultswithin the time period is included. IRON 76 50 - 170 MCG/DL 01/21/2025 10:21 AM CDT [facility] IRON BINDING CAPACITY 245(L) 250 - 450 MCG/DL 01/21/2025 10:21 AM CDT [facility] IRON SATURATION 31 20 - 55 % 10:21 AM CDT [facility] 01/21/2025 9:26 AM CDT Kayla Donovan MD LABORATORY Final Result Performing Organization Address [facility] Co de Phone Number [facility] [address] [place] [address], [place] [phone] * (ABNORMAL) COMPREHENSIVE METABOLIC PANEL (01/21/2025 9:26 AM CDT) Only the most recent of10 resultswithin the time period is included. GLUCOSE 92 70 - 99 MG/DL 01/21/2025 10:16 AM CDT [facility] BUN 19(H) 7 - 18 MG/DL 01/21/2025 10:16 AM CDT [facility] CREATININE S/P/B 1.13(H) 0.55 - 1.02 MG/DL 01/21/2025 10:16 AM CDT [facility] SODIUM S/P/B 142 136 - 145 MMOL/L 01/21/2025 10:16 AM [facility] POTASSIUM S/P/B 4.2 3.5 - 5.1 MMOL/L 01/21/2025 10:16 AM [facility] CHLORIDE S/P/B 106 100 - 108 MMOL/L 01/21/2025 10:16 AM [facility] CO2 30.5 21 - 32 MMOL/L 01/21/2025 10:16 AM [facility] CALCIUM S/P/B 9.8 8.5 - 10.1 MG/DL 01/21/2025 10:16 AM [facility] BILIRUBIN TOTAL S/P/B 0.4 0.2 - 1.2 MG/DL 01/21/2025 10:16 AM [facility] TOTAL PROTEIN S/P/B 6.9 6.4 - 8.2 G/DL 01/21/2025 10:16 AM [facility] ALBUMIN S/P/B 4.0 3.4 - 5.0 G/DL 01/21/2025 10:16 AM [facility] AST 17 15 - 37 U/L 01/21/2025 10:16 AM [facility] ALT 22 14 - 55 U/L 01/21/2025 10:16 AM [facility] ALKALINE PHOSPHATASE S/P/B 66 50 - 136 U/L 01/21/2025 10:16 AM [facility] ANION GAP 5.5 5 - 15 MMOL/L 01/21/2025 10:16 AM [facility] BUN CREATININE RATIO 16.8 6 - 26 01/21/2025 10:16 AM [facility] A/G RATIO 1.4 1.0 - 2.0 RATIO 01/21/2025 10:16 AM CDT [facility] GFR ESTIMATE 51(L) >90 ML/MIN/1.7 3 M2 01/21/2025 10:16 AM CDT [facility] Comment: NOTE: eGFR is not calculated for patients <18 years of age. This is an estimated GFR calculation using the new CKD EPI creatinine equation without race and so does not require a correction factor for race. This estimated GFR should not be used for calculating drug doses. 01/21/2025 9:26 AM CDT us Kayla Donovan MD LABORATORY Final Result [facility] [address] [place] [address], [place] [phone] * (ABNORMAL) CBC W/DIFF AUTOMATED (01/21/2025 9:26 AM CDT) Only the most recent of15 resultswithin the time period is included. WBC 5.47 4.4 - 11.0 x10'3/uL 01/21/2025 9:44 AM CDT [facility] RBC 4.09(L) 4.50 - 5.10 x10'6/uL 01/21/2025 9:44 AM CDT [facility] HGB 12.7 12.3 - 15.3 G/DL 01/21/2025 9:44 AM CDT [facility] HCT 38.2 35.9 - 44.6 % 01/21/2025 9:44 AM CDT [facility] MCV 93.4 80.0 - 96.0 FL 01/21/2025 9:44 AM CDT [facility] MCH 31.1(H) 25.3 - 30.9 PG 01/21/2025 9:44 AM CDT [facility] MCHC 33.2 31.0 - 34.1 G/DL 01/21/2025 9:44 AM CDT [facility] RDW 12.2(L) 12.4 - 15.1 % 01/21/2025 9:44 AM T [facility] PLT 179 151 - 353 x10'3/uL 01/21/2025 9:44 AM T [facility] MPV 9.2(L) 9.6 - 12.0 FL 01/21/2025 9:44 AM T [facility] RBC MORPHOLOGY NORMAL 01/21/2025 9:44 AM T [facility] PLT MORPH. NORMAL 01/21/2025 9:44 AM T [facility] WBC MORPHOLOGY NORMAL 01/21/2025 9:44 AM T [facility] LYMPHOCYTES % 36.9 15.8 - 45.0 % 01/21/2025 9:44 AM T [facility] NEUTROPHILS % 48.4 42.1 - 71.9 % 01/21/2025 9:44 AM T [facility] MONOCYTES % 7.5 5.7 - 12.5 % 01/21/2025 9:44 AM [facility] EOSINOPHILS 6.6(H) 0.0 - 5.6 % 01/21/2025 9:44 AM T [facility] BASOPHILS 0.4 0.0 - 1.3 % 01/21/2025 9:44 AM T [facility] ABS. NEUTROPHILS 2.65 1.40 - 6.00 x10'3/uL 01/21/2025 9:44 AM T [facility] IMMATURE GRANS % 0.2 0.0 - 0.5 % 01/21/2025 9:44 AM CDT [facility] ABS. LYMPHOCYTES 2.02 0.80 - 4.70 x10'3/uL 01/21/2025 9:44 AM CDT [facility] 01/21/2025 9:26 AM CDT Kayla Donovan MD LABORATORY Final Result [facility] [address] [place] [address], [place] [phone] * FERRITIN (01/21/2025 9:26 AM CDT) Only the most recent of10 resultswithin the time period is included. FERRITIN 290.0 8.0 - 388.0 NG/ML 01/21/2025 10:16 AM CDT [facility] 01/21/2025 9:26 AM CDT Kayla Donovan MD LABORATORY Final Result Performing Organization Address City/[facility]/ZIP Co de Phone Number [facility] [address] [place] [address], [place] [phone] * (ABNORMAL) URINALYSIS, AUTO, COMPLETE (09/11/2024 12:30 PM SENIOR C WEB DEVELOPER) COLOR (U) YELLOW 09/11/2024 2:14 PM SENIOR C WEB DEVELOPER [facility] TRANSPARENCY CLOUDY 09/11/2024 2:14 PM SENIOR C WEB DEVELOPER [facility] SPECIFIC GRAVITY (U) 1.025 1.000 - 1.030 09/11/2024 2:14 PM SENIOR C WEB DEVELOPER [facility] U PH 6.0 5.0 - 9.0 09/11/2024 2:14 PM SENIOR C WEB DEVELOPER [facility] LEUKOCYTES (U) 2+(A) NEGATIVE 09/11/2024 2:[address] [facility] NITRITES NEGATIVE NEGATIVE 09/11/2024 2:[address] [facility] PROTEIN RANDOM (U) 1+(A) NEGATIVE 09/11/2024 2:[address] [facility] GLUCOSE (U) NEGATIVE NEGATIVE 09/11/2024 2:[address] [facility] KETONES MG/DL (U) NEGATIVE NEGATIVE 09/11/2024 2:[address] [facility] BILIRUBIN (U) NEGATIVE NEGATIVE 09/11/2024 2:[address] [facility] BLOOD (U) TRACE(A) NEGATIVE 09/11/2024 2:[address] [facility] WBC/HPF 50-100 0 - 5 /HPF 09/11/2024 2:[address] [facility] RBC/HPF NONE SEEN 0 - 5 /HPF 09/11/2024 2:[address] [facility] EPI/HPF NONE SEEN /HPF 09/11/2024 2:[address] [facility] BACTERIA (U) MANY /HPF 09/11/2024 2:[address] [facility] URINE SPECIMEN OBTAINED BY CLEAN CATCH PROCEDURE / Unknown 09/11/2024 12:30 PM SENIOR C WEB DEVELOPER us Kayla Donovan MD URINE ORDERABLES Final Result [facility] [address] [place] [address], * LIPID PANEL (09/11/2024 9:37 AM SENIOR C WEB DEVELOPER) Only the most recent of15 resultswithin the time period is included. CHOLESTEROL 155 <200.0 MG/DL 09/11/2024 1:[address] [facility] TRIGLYCERIDES 53 <150 MG/DL 09/11/2024 1:[address] [facility] HDL 67 >40.0 MG/DL 09/11/2024 1:[address] [facility] LDL (CALCULATED) 77 <100 MG/DL 09/11/19 25 1:[address] [facility] NON HDL CHOLESTEROL 88 <130 MG/DL 09/11 1:[address] [facility] CHOL/HDL RATIO 2.3 0.0 - 4.5 09/11/2024 1:[address] [facility] VLDL CALCULATION 11 5 - 55 MG/DL 09/11/2024 1:[address] [facility] LIPID INTERPRETATION 09/11/2024 1:[address] [facility] Comment: [facility] CONCENSUS REPORT RECOMMENDATIONS: ADULT CHILD LOW RISK: CHOLESTEROL <200 <170 TRIGLYCERIDE <150 --- HDL >=60 --- LDL <100 <110 BORDERLINE: CHOLESTEROL 200-239 170-199 TRIGLYCERIDE 150-199 --- HDL 40-59 --- LDL 100-159 110-129 HIGH RISK: CHOLESTEROL >=240 >=200 TRIGLYCERIDE >=200 --- HDL <40 --- LDL >=160 >=130 09/11/2024 9:37 AM SENIOR C WEB DEVELOPER Kayla Donovan MD LABORATORY Final Result [facility] [address] [place] [address], * VITAMIN D, 25 OH (09/11/2024 9:37 AM SENIOR C WEB DEVELOPER) Only the most recent of8 resultswithin the time period is included. Pathologist [facility] VITAMIN D 25 HYDROXY S/P/B 73 30 - 100 NG/ML 09/11/2024 10:[address] [facility] Comment: INTERPRETATION DEFICIENT <20 INSUFFICIENT 20-29 SUFFICIENT 30-100 09/11/2024 9:37 AM SENIOR C WEB DEVELOPER Kayla Donovan MD LABORATORY Final Result Performing Organization Address [facility] Co de Phone Number [facility] [address] [place] [address], [place] [phone] * (ABNORMAL) THYROXINE, FREE (FT4) (01/27/2024 1:15 PM CDT) Only the most recent of8 resultswithin the time period is included. FREE T4 0.74(L) 0.76 - 1.46 NG/DL 01/27/2024 2:21 PM CDT [facility] 01/27/2024 1:15 PM CDT Kayla Donovan MD LABORATORY Final Result Performing Organization Address [facility] de Phone Number [facility] [address] [place] [address], [place] [phone] * THYROID STIM HORMONE TSH (01/27/2024 1:15 PM CDT) Only the most recent of8 resultswithin the time period is included. TSH 1.410 0.358 - 3.74 uIU/ML 01/27/2024 2:21 PM CDT [facility] Comment: HIGH DOSES OF BIOTIN MAY INTERFERE WITH THIS TEST RESULT. CORRELATION TO CLINICAL HISTORY AND PRESENTATION RECOMMENDED. 01/27/2024 1:15 PM CDT Kayla Donovan MD LABORATORY Final Result Performing Organization Address [facility] Co de Phone Number [facility] [address] [place] [address], [place] [phone] * CT ABD+PEL W IV CON ONLY (03/09/2023 5:11 PM CDT) Only the most recent of2 resultswithin the time period is included. Anatomical Region Laterality Modality Abdomen Computed Tomogra phy 03/09/2023 5:19 PM CDT Impressions 03/09/2023 5:31 PM CDT IMPRESSION: 1. Nonspecific enterocolitis and diarrheal disease with scattered air-fluid levels throughout the colon and mild nonspecific small bowel wall thickening. No bowel obstruction or CT evidence of peritonitis. 2. Diffuse osseous demineralization suggesting osteopenia/osteoporosis with chronic appearing, but technically age indeterminate T12 vertebral body compression deformity, new relative to January 2022. 3. Additional chronic/incidental findings as above. Referred By: Interpreted By: Travon Buitrago MD, 03/09/2023 5:19 PM Narrative 03/09/2023 5:31 PM CDT EXAMINATION: CT ABD+PEL W CON INDICATIONS: RIGHT SIDE ABDOMINAL PAIN COMPARISON: 01/29/2022 TECHNIQUE: Contiguous axial CT images through the abdomen and pelvis following the uneventful intravenous administration of 75 mL Isovue-370 iodinated contrast with coronal and sagittal reformats. A dose lowering technique was used for this procedure, which may include, but is not limited to, dose reduction technique, automated exposure control, the use of iterative reconstruction, and ALARA (As Low As Reasonably Achievable) / Image Gently techniques. FINDINGS: No consolidation, effusion, or suspicious pulmonary nodule within the visualized lung bases. The visualized cardiomediastinal structures are within normal limits. The liver, spleen, pancreas, and adrenal glands are normal in morphology and attenuation without suspicious lesion. The gallbladder is surgically absent. No significant pancreaticobiliary ductal dilatation. No peripancreatic inflammatory stranding. Symmetric renal cortical enhancement without significant perinephric stranding, obstructing calculus, or hydronephrosis. Small extrarenal pelves bilaterally. Smoothly marginated simple fluid attenuating 15 mm peripelvic cyst in the left lower kidney, statistically benign and requiring no routine imaging follow-up per consensus recommendations. No suspicious renal lesion. The ureters are normal. The urinary bladder is well and smoothly distended without focal wall thickening, perivesicular stranding, or intraluminal calculus. The uterus is anteverted without localizing abnormality. No suspicious adnexal lesion. No significant free fluid within the dependent pelvis. Few scattered calcified pelvic phleboliths. The gastrointestinal tract is normal in caliber. Few regions of small bowel wall thickening throughout the abdomen most pronounced within the left upper quadrant. The cecum is mobile and and displaced anteriorly to the right upper abdomen. The appendix and terminal ileum are within normal limits. Chilaiditi colonic transposition at the hepatic flexure. Multiple scattered distal colonic diverticula. Liquid enteric contents and scattered air-fluid levels throughout the colon with mixed liquid and solid contents within the rectum. No pericolonic soft tissue stranding. No ascites or pneumoperitoneum. No mesenteric or retroperitoneal adenopathy. The aorta and IVC are normal in caliber. No soft tissue mass or fluid collection. Diffuse osseous demineralization. Mild T12 anterior compression deformity with associated endplate sclerosis, new relative to January 2022. Multilevel spondylosis and discogenic disease with grade 1 anterolisthesis of L5 on S1, degenerative in nature. No aggressive osseous lesion. Procedure Note Travon Buitrago MD - 03/09/2023 EXAMINATION: CT ABD+PEL W CON INDICATIONS: RIGHT SIDE ABDOMINAL PAIN COMPARISON: 01/29/2022 TECHNIQUE: Contiguous axial CT images through the abdomen and pelvisfollowing the uneventful intravenous administration of 75 mL Isovue-370iodinated contrast with coronal and sagittal reformats. A dose lowering technique was used for this procedure, which may include,but is not limited to, dose reduction technique, automated exposurecontrol, the use of iterative reconstruction, and ALARA (As Low AsReasonably Achievable) / Image Gently techniques. FINDINGS: No consolidation, effusion, or suspicious pulmonary nodule within thevisualized lung bases. The visualized cardiomediastinal structures are within normal limits. The liver, spleen, pancreas, and adrenal glands are normal in morphologyand attenuation without suspicious lesion. The gallbladder is surgically absent. No significant pancreaticobiliary ductal dilatation. No peripancreatic inflammatory stranding. Symmetric renal cortical enhancement without significant perinephricstranding, obstructing calculus, or hydronephrosis. Small extrarenal pelves bilaterally. Smoothly marginated simple fluid attenuating 15 mm peripelvic cyst in theleft lower kidney, statistically benign and requiring no routine imagingfollow-up per consensus recommendations. No suspicious renal lesion. The ureters are normal. The urinary bladder is well and smoothly distended without focal wallthickening, perivesicular stranding, or intraluminal calculus. The uterus is anteverted without localizing abnormality. No suspicious adnexal lesion. No significant free fluid within the dependent pelvis. Few scattered calcified pelvic phleboliths. The gastrointestinal tract is normal in caliber. Few regions of small bowel wall thickening throughout the abdomen mostpronounced within the left upper quadrant. The cecum is mobile and and displaced anteriorly to the right upperabdomen. The appendix and terminal ileum are within normal limits. Chilaiditi colonic transposition at the hepatic flexure. Multiple scattered distal colonic diverticula. Liquid enteric contents and scattered air-fluid levels throughout thecolon with mixed liquid and solid contents within the rectum. No pericolonic soft tissue stranding. No ascites or pneumoperitoneum. No mesenteric or retroperitoneal adenopathy. The aorta and IVC are normal in caliber. No soft tissue mass or fluid collection. Diffuse osseous demineralization. Mild T12 anterior compression deformity with associated endplatesclerosis, new relative to January 2022. Multilevel spondylosis and discogenic disease with grade 1 anterolisthesisof L5 on S1, degenerative in nature. No aggressive osseous lesion. IMPRESSION: 1. Nonspecific enterocolitis and diarrheal disease with scatteredair-fluid levels throughout the colon and mild nonspecific small bowelwall thickening. No bowel obstruction or CT evidence of peritonitis. 2. Diffuse osseous demineralization suggesting osteopenia/osteoporosiswith chronic appearing, but technically age indeterminate T12 vertebralbody compression deformity, new relative to January 2022. 3. Additional chronic/incidental findings as above. Referred By: Interpreted By: Travon Buitrago MD, 03/09/2023 5:19 PM Ryan Hernández MD CT Final Re sult * (ABNORMAL) LIPASE (03/09/2023 4:09 PM CDT) LIPASE 250(H) 16 - 77 UNITS/L 03/09/2023 4:46 PM CDT [facility] Comment: PLEASE NOTE: NEW LIPASE REFERENCE RANGE, EFFECTIVE 01/01/2023 NEW REFERENCE RANGE 16-77 U/L 03/09/2023 4:09 PM CDT Ryan Hernández MD LABORATORY Final Re sult [facility] [address] [place] [address], * MG SCREENING W ALINE HERIBERTO DIGI (02/25/2023 8:44 AM CDT) Only the most recent of3 resultswithin the time period is included. Anatomical Region Laterality Modality Breast Bilateral Mammography 02/25/2023 8:46 AM CDT Narrative 02/25/2023 8:51 AM CDT IMAGING STUDIES: Bilateral screening mammograms with computer-aided detection with 2-D and 3-D imaging. Tomosynthesis. DATE: 02/25/2023 8:28 AM HISTORY: z12.31 . Routine screening COMPARISON: 07/28/2020. 12/18/2021. TISSUE TYPE: The breast tissue is almost entirely fatty. FINDINGS: 1. Fatty fibroglandular tissue pattern is present. 2. No malignant microcalfcifications, new dominant masses, or architectural distortion. Benign calcification 3. No skin thickening or nipple retraction. Axillary regions are within normal limits. IMPRESSION: 1. No mammographic evidence of malignancy. 2. Assessment: ACR BI-RADS 2 - BENIGN FINDING(S) 3 .Routine Screening Bilateral MQSA BI-RADS Categories: Category 0 - needs additional imaging evaluation. Category 1 - negative. Category 2 - benign findings. Category 3 - probably benign findings, but short interval follow-up is recommended. Category 4 - suspicious abnormality and biopsy should be considered though the lesion may well be benign. Category 5 - highly suggestive of malignancy and appropriate action should be taken. Category 6 - known biopsy-proven malignancy A) A negative report should not delay a biopsy if a dominant or clinically suspicious mass is present. B) Adenosis and dense breasts may obscure an underlying neoplasm. C) Study interpreted with computer aided detection. Ordered By: KAYLA DONOVAN Interpreted By: Bonnie Waslh, 02/25/2023 8:46 AM Kayla Donovan MD MAMMO Final Result * CT HEAD WO CON (11/30/2022 9:03 AM CDT) Only the most recent of3 resultswithin the time period is included. Anatomical Region Laterality Modality Head Computed Tomogra phy 11/30/2022 1:37 PM CDT Impressions 11/30/2022 1:40 PM CDT IMPRESSION: 1) No evidence of intracranial hemorrhage or other definite acute posttraumatic pathology. 2. Chronic ischemic changes suggested with mild atrophy. Ordered By: KAYLA DONOVAN Interpreted By: Quan Guerra MD, 11/30/2022 1:37 PM Narrative 11/30/2022 1:40 PM CDT Examination: CT HEAD WO CON Exam time: 11/30/2022 8:46 AM Clinical history: History of trauma in October. Trauma to the right periorbital region. Comparison: Old studies were done December 2021. Technique: A dose lowering technique was used for this procedure, which may include, but is not limited to dose reduction technique, automated exposure control and the use of a iterative reconstruction and ALARA (as low as reasonably achievable)/image gently techniques Findings: There is no evidence of intracranial hemorrhage. There is mild atrophy with chronic ischemic changes suggested. No acute extra-axial fluid. The cisterns are well maintained. There is no midline shift. There is mild distention of the cortex and the white matter. Within the ventricles no abnormalities. The osseous structures are intact. Optimal aeration of the mastoid air cells and the paranasal sinuses. Within the orbits no abnormalities. Please correlate clinically. If there is concern for diffuse axonal injury or otherwise indicated MRI of the brain can BE considered. Procedure Note Quan Guerra MD - 11/30/2022 Examination: CT HEAD WO CON Exam time: 11/30/2022 8:46 AM Clinical history: History of trauma in October. Trauma to the rightperiorbital region. Comparison: Old studies were done December 2021. Technique: A dose lowering technique was used for this procedure, whichmay include, but is not limited to dose reduction technique, automatedexposure control and the use of a iterative reconstruction and ALARA (aslow as reasonably achievable)/image gently techniques Findings: There is no evidence of intracranial hemorrhage. There is mildatrophy with chronic ischemic changes suggested. No acute extra-axialfluid. The cisterns are well maintained. There is no midline shift. Thereis mild distention of the cortex and the white matter. Within theventricles no abnormalities. The osseous structures are intact. Optimal aeration of the mastoid aircells and the paranasal sinuses. Within the orbits no abnormalities. Please correlate clinically. If there is concern for diffuse axonal injuryor otherwise indicated MRI of the brain can BE considered. IMPRESSION: 1) No evidence of intracranial hemorrhage or other definite acuteposttraumatic pathology. 2. Chronic ischemic changes suggested with mild atrophy. Ordered By: KAYLA DONOVAN Interpreted By: Quan Guerra MD, 11/30/2022 1:37 PM Kayla Donovan MD CT Final Result * (ABNORMAL) BASIC METABOLIC PANEL (11/07/2022 10:15 AM SENIOR C WEB DEVELOPER) Only the most recent of16 resultswithin the time period is included. GLUCOSE 95 70 - 99 MG/DL 11/07/2022 11:[address] [facility] BUN 19(H) 7 - 18 MG/DL 11/07/2022 11:[address] [facility] CREATININE S/P/B 0.94 0.55 - 1.02 MG/DL 11/07/2022 11:[address] [facility] SODIUM S/P/B 141 136 - 145 MMOL/L 11/07/2022 11:[address] [facility] POTASSIUM S/P/B 4.7 3.5 - 5.1 MMOL/L 11/07/2022 11:[address] [facility] CHLORIDE S/P/B 107 100 - 108 MMOL/L 11/07/2022 11:[address] [facility] CO2 29.1 21 - 32 MMOL/L 11/07/2022 11:[address] [facility] CALCIUM S/P/B 9.1 8.5 - 10.1 MG/DL 11/07/2022 11:[address] [facility] ANION GAP 4.9(L) 5 - 15 MMOL/L 11/07/2022 11:[address] [facility] BUN CREATININE RATIO 20.2 6 - 26 11/07/2022 11:[address] [facility] GFR ESTIMATE 65(L) >90 ML/MIN/1.7 3 M2 11/07/2022 11:[address] [facility] Comment: NOTE: eGFR is not calculated for patients <18 years of age. This is an estimated GFR calculation using the new CKD EPI creatinine equation without race and so does not require a correction factor for race. This estimated GFR should not be used for calculating drug doses. 11/07/2022 10:1 5 AM SENIOR C WEB DEVELOPER Kayla Donovan MD LABORATORY Final Result [facility] [address] [facility] [place] [address], * (ABNORMAL) VITAMIN B12 / FOLATE (06/18/2022 9:19 AM CDT) Only the most recent of3 resultswithin the time period is included. VITAMIN B12 S/P/B 1,138(H) 193 - 986 PG/ML 06/18/2022 11:08 AM CDT [facility] FOLATE 10.0 8.6 - 58.9 NG/ML 06/18/2022 11:08 AM CDT [facility] 06/18/2022 9:19 AM CDT us Kayla Donovan MD LABORATORY Final Result Performing Organization Address [facility] Co de Phone Number [facility] [address] [place] [address], [place] [phone] * CREATININE WHOLE BLOOD (Radiology only) (01/29/2022 6:49 PM CDT) CREATININE WHOLE BLOOD 0.7 0.6 - 1.2 MG/DL 01/29/2022 7:03 PM CDT [facility] 01/29/2022 6:49 PM CDT us Kayla Donovan MD LABORATORY Final Result Performing Organization Address [facility] de Phone Number [facility] [address] [place] [address], [place] [phone] * CT CHEST W CON (01/29/2022 9:24 AM CDT) Anatomical Region Laterality Modality Chest Computed Tomogra phy 01/29/2022 2:29 PM CDT Impressions 01/29/2022 2:53 PM CDT IMPRESSION: No pulmonary mass, pulmonary consolidation, pneumothorax, or pleural fluid collections identified. Extreme inferior aspect of right lower lobe posteriorly excluded from margin of study though it is included at same-day CT abdomen and pelvis without abnormality noted there. No axillary, mediastinal, or hilar lymphadenopathy. Small hypodense, approximately 5 mm right thyroid lobe nodule incidentally noted. Degenerative and hypertrophic change noted in thoracic spine without fracture or bone destruction identified. Please see same day CT abdomen and pelvis report for findings below the diaphragm. Widely patent celiac axis and superior mesenteric arteries and with patent inferior mesenteric artery noted at same-day CT abdomen and pelvis study. Ordered By: KAYLA DONOVAN Interpreted By: Eugene Hernández, 01/29/2022 2:29 PM Narrative 01/29/2022 2:53 PM CDT IMAGING STUDIES: CT CHEST WITH IV CONTRAST WITH SAGITTAL AND CORONAL RECONSTRUCTION DATE: 01/29/2022 7:52 AM HISTORY: Abnormal weight loss. COMPARISON: 03/13/2015 CT chest. CONTRAST: 75 mL Isovue-370 IV. Radiation dose reduction technique was utilized. Procedure Note Eugene Hernández MD - 01/29/2022 IMAGING STUDIES: CT CHEST WITH IV CONTRAST WITH SAGITTAL AND CORONALRECONSTRUCTION DATE: 01/29/2022 7:52 AM HISTORY: Abnormal weight loss. COMPARISON: 03/13/2015 CT chest. CONTRAST: 75 mL Isovue-370 IV. Radiation dose reduction technique was utilized. IMPRESSION: No pulmonary mass, pulmonary consolidation, pneumothorax, orpleural fluid collections identified. Extreme inferior aspect of rightlower lobe posteriorly excluded from margin of study though it is includedat same-day CT abdomen and pelvis without abnormality noted there. Noaxillary, mediastinal, or hilar lymphadenopathy. Small hypodense,approximately 5 mm right thyroid lobe nodule incidentally noted. Degenerative and hypertrophic change noted in thoracic spine withoutfracture or bone destruction identified. Please see same day CT abdomenand pelvis report for findings below the diaphragm. Widely patent celiacaxis and superior mesenteric arteries and with patent inferior mesentericartery noted at same-day CT abdomen and pelvis study. Ordered By: KAYLA DONOVAN Interpreted By: Eugene Hernández, 01/29/2022 2:29 PM Kayla Donovan MD CT Final Result * (ABNORMAL) URINALYSIS WI REFLEX TO CULTURE (01/18/2022 10:51 AM CDT) COLOR (U) YELLOW 01/18/2022 11:12 AM CDT [facility] TRANSPARENCY HAZY 01/18/2022 11:12 AM CDT [facility] SPECIFIC GRAVITY (U) 1.020 1.000 - 1.030 01/18/2022 11:12 AM T [facility] U PH 6.0 5.0 - 9.0 01/18/2022 11:12 AM [facility] LEUKOCYTES (U) 1+(A) NEGATIVE 01/18/2022 11:12 AM [facility] NITRITES NEGATIVE NEGATIVE 01/18/2022 11:12 AM T [facility] PROTEIN (U) NEGATIVE NEGATIVE 01/18/2022 11:12 AM [facility] URINE GLUCOSE NEGATIVE NEGATIVE 01/18/2022 11:12 AM [facility] KETONES MG/DL (U) NEGATIVE NEGATIVE 01/18/2022 11:12 AM [facility] BILIRUBIN (U) NEGATIVE NEGATIVE 01/18/2022 11:12 AM [facility] BLOOD (U) NEGATIVE NEGATIVE 01/18/2022 11:12 AM [facility] WBC/HPF 5-10 0 - 5 /HPF 01/18/2022 11:12 AM [facility] RBC/HPF NONE SEEN 0 - 5 /HPF 01/18/2022 11:12 AM [facility] EPI/HPF FEW /HPF 01/18/2022 11:12 AM [facility] CULTURE & SENSITIVITY INDICATED? SPECIMEN SETUP FOR CULTURE 01/18/2022 11:12 AM [facility] URINE SPECIMEN OBTAINED BY CLEAN CATCH PROCEDURE / Unknown 01/18/2022 10:51 AM CDT us Kayla Donovan MD URINE ORDERABLES Final Result [facility] [address] [place] [address], [place] [phone] * CULTURE URINE (01/18/2022 10:51 AM CDT) Pathologist [facility] SPEC DESCRIPTION URINE CLEAN CATCH 01/18/2022 11:15 AM CDT [facility] SPECIAL REQUESTS NO SPECIAL REQUEST 01/18/2022 11:15 AM CDT [facility] CULTURE RESULT NO GROWTH 2 DAYS 01/20/2022 8:49 AM CDT [facility] URINE SPECIMEN OBTAINED BY CLEAN CATCH PROCEDURE / Unknown 01/18/2022 10:51 AM CDT 01/18/2022 11:14 AM CDT us Kayla Donovan MD MICROBIOLOGY - GENERAL ORDERABLE S Final Result Performing Organization Address City/[facility]/ZIP Co de Phone Number [facility] [address] [place] [address], [place] [phone] [facility] [address] [place] [address], [place] [phone] * (ABNORMAL) PREALBUMIN (01/18/2022 10:35 AM CDT) [facility] PREALBUMIN 18.1(L) 20.0 - 40.0 MG/DL 01/18/2022 11:15 AM CDT [facility] 01/18/2022 10:3 5 AM CDT us Kayla Donovan MD LABORATORY Final Result [facility] [address] [place] [address], [place] [phone] * TSH W/REFLEX (12/15/2021 1:52 PM CDT) [facility] TSH 0.665 0.358 - 3.74 uIU/ML 12/15/2021 2:39 PM CDT [facility] Comment: HIGH DOSES OF BIOTIN MAY INTERFERE WITH THIS TEST RESULT. CORRELATION TO CLINICAL HISTORY AND PRESENTATION RECOMMENDED. FREE T4 NOT INDICATED 12/15/2021 1:52 PM CDT Bairon Nam MD LABORATORY Final Result Performing Organization Address City/[facility] Co de Phone Number [facility] [address] [place] [address], [place] [phone] * SED RATE, ERYTHROCYTE (ESR) (08/25/2021 8:58 AM SENIOR C WEB DEVELOPER) Only the most recent of7 resultswithin the time period is included. ESR 20 0 - 20 MM/HR 08/25/2021 9:38 AM SENIOR C WEB DEVELOPER [facility] 08/25/2021 8:58 AM SENIOR C WEB DEVELOPER Kayla Donovan MD LABORATORY Final Result Performing Organization Address [facility] de Phone Number [facility] [address] [place] [address], [place] [phone] * C-REACTIVE PROTEIN (08/25/2021 8:58 AM SENIOR C WEB DEVELOPER) Only the most recent of7 resultswithin the time period is included. C-REACTIVE PROTEIN <0.20 <0.9 mg/dL 08/25/2021 9:48 AM SENIOR C WEB DEVELOPER [facility] 08/25/2021 8:58 AM SENIOR C WEB DEVELOPER us Kayla Donovan MD LABORATORY Final Result Performing Organization Address [facility] Co de Phone Number [facility] [address] [place] [address], [place] [phone] * STOOL FOR WBC (03/20/2021 1:02 PM CDT) STOOL WBC LACTOFERRIN NEGATIVE NEGATIVE 03/20/2021 4:04 PM CDT [facility] STOOL SPECIMEN / Unknown 03/20/2021 1:02 PM CDT Kayla Donovan MD BODY FLUIDS AND STOOLS ORDERABLE S Final Result [facility] [address] [place] [address], * CLOSTRIDIUM DIFFICILE (03/20/2021 1:02 PM CDT) [facility] ANTIGEN NEGATIVE NEGATIVE 03/20/2021 4:13 PM CDT [facility] C DIFFICILE TOXIN A&B (STOOL) NEGATIVE NEGATIVE 03/20/2021 4:13 PM CDT [facility] COMMENT GDH NEGATIVE/TOXI N A & B NEGATIVE: NEGATIVE FOR TOXIGENIC C. DIFFICILE. GDH NEGATIVE/TOXI N A & B NEGATIVE: NEGATIVE FOR TOXIGENIC C. 03/20/2021 4:13 PM CDT [facility] STOOL SPECIMEN / Unknown 03/20/2021 1:02 PM CDT Kayla Donovan MD BODY FLUIDS AND STOOLS ORDERABLE S Final Result [facility] [address] [place] [address], [place] [phone] * MISCELLANEOUS LAB TEST (03/20/2021 1:02 PM CDT) TEST NAME: [id number] FECAL ELECTROLYTE 03/20/2021 1:09 PM CDT [facility] SPECIMEN TYPE STOOL 03/20/2021 1:09 PM CDT [facility] TEST RESULT: TEST NOT PERFORMED. 03/24/2021 10:05 AM CDT [facility]OT[facility] Comment: Flexitest 1 Electrolytes, Feces Test not performed. Formed stool was received. Testing requires unformed stool sample. Test Performed by [employer]oh[employer] [facility], [address] [place], [place] Nash Walker M.D., Ph.D., Director of Laboratories , [facility] [id number] 03/20/2021 1:02 PM CDT us Kayla Donovan MD LABORATORY Final Result [facility] [address] [place] [address], [place] [phone] [facility] [address] [place] [address], [place] [phone] * O&P CONC&SMEAR TO REF LAB (03/20/2021 1:02 PM CDT) SPECIMEN SOURCE STOOL 1:03 PM CDT [facility] O & P EXAMINATION (STOOL) REPORT 03/28/2021 9:19 PM CDT [facility] EWELINA ESPANA Comment: Ova and Parasites, Concentrate and Permanent Smear Examination for Ova and Parasites SOURCE : STOOL Result/Comment: NO OVA AND PARASITES SEEN. Reference Range: No Ova and Parasites seen Routine Ova and Parasite Exam may not detect some parasites that occasionally cause diarrheal illness. Test code(s) 50119V[59812](Cryptosporidium Ag, DFA) and/or 55964A[75196] (Cyclospora and Isospora Exam) may be ordered to detect these parasites. One negative sample does not necessarily rule out the presence of a parasitic infection. Assay performed by wet mount after concentration. Parasite Exam, Trichrome Stain SOURCE : STOOL Result/Comment: NO OVA AND PARASITES SEEN. Routine Ova and Parasite Exam may not detect some parasites that occasionally cause diarrheal illness. Test code(s) 57665X[09732](Cryptosporidium Ag, DFA) and/or 04566T[91558] (Cyclospora and Isospora Exam) may be ordered to detect these parasites. One negative sample does not necessarily rule out the presence of a parasitic infection. For additional information, please refer to https://education.MedVentive/faq/JAY661 (This link is being provided for informational/ educational purposes only.) Test Performed by [employer], [employer], [address] [place] [address] Nash Walker M.D., Ph.D., Director of Laboratories , [facility] [id number] STOOL SPECIMEN / Unknown 03/20/2021 1:02 PM CDT Kayla Donovan MD MICROBIOLOGY - GENERAL ORDERABLE S Final Result [employer] [address], [place] [phone] [facility] [address] [place] [address], [place] [phone] * Stool Culture (03/20/2021 1:02 PM CDT) SPEC DESCRIPTION STOOL 03/20/2021 1:03 PM CDT [facility] SPECIAL REQUESTS NO SPECIAL REQUEST 03/20/2021 1:03 PM CDT [facility] CULTURE RESULT NEGATIVE FOR SHIGA TOXIN 1 AND 2 03/23/2021 7:01 AM CDT [facility] CULTURE RESULT NO ENTERIC PATHOGENS ISOLATED 03/23/2021 7:01 AM CDT [facility] CULTURE RESULT NOTE: STOOL CULTURES ARE ROUTINELY SCREENED FOR SALMONELLA,SH IGELLA,YERSIN IA,AEROMONAS, PLESIOMONAS,C AMPYLOBA CTER,E.COLI 0157,OVERGROW THS OF S.AUREUS,YEAS T AND P. AERUGINOSA 03/23/2021 7:01 AM CDT [facility] Stool specimen (specimen) STOOL SPECIMEN / Unknown 03/20/2021 1:02 PM CDT 03/20/2021 1:08 PM CDT Kayla Donovan MD MICROBIOLOGY - GENERAL ORDERABLE S Final Result Performing Organization Address City/[facility] Co de Phone Number [facility] [address] [place] [address], [place] [phone] [facility] [address] [place] [address], [place] [phone] * OCCULT BLOOD, FECES (11/14/2020 2:00 PM SENIOR C WEB DEVELOPER) Only the most recent of3 resultswithin the time period is included. OCCULT BLOOD FECAL NEGATIVE NEGATIVE 11/15/2020 9:34 AM SENIOR C WEB DEVELOPER [facility] STOOL SPECIMEN / Unknown 11/14/2020 2:00 PM SENIOR C WEB DEVELOPER Kayla Donovan MD BODY FLUIDS AND STOOLS ORDERABLE S Final Result Performing Organization Address City/[facility] Co de Phone Number [facility] [address] [place] [address], [place] [phone] * XR ESOPHOGRAM/BARIUM SWALLOW (07/13/2020 10:14 AM SENIOR C WEB DEVELOPER) Anatomical Region Laterality Modality Chest, Abdomen Radiographic Darcy ging, Radiographic Imaging 07/13/2020 10:4 1 AM SENIOR C WEB DEVELOPER Impressions 07/13/2020 10:45 AM SENIOR C WEB DEVELOPER IMPRESSION: Esophageal dysmotility without significant stricture, mucosal irregularity, or hiatal hernia. No findings of diffuse esophageal spasm or achalasia. Interpreted By: Travon Buitrago, 07/13/2020 10:41 AM Narrative 07/13/2020 10:45 AM SENIOR C WEB DEVELOPER Exam:XR ESOPHOGRAM/BARIUM SWALLOW EXAM DATE: 07/13/2020 9:15 AM INDICATIONS: Difficulty swallowing. HISTORY: Patient reports recurrent bouts of food becoming stuck within the mid chest with rapid eating. Patient reports prior EGD with dilatation. TECHNIQUE: Real-time fluoroscopic evaluation of the esophagus following the uneventful oral administration of effervescent crystals and thick and thin barium in both the left lateral oblique, supine, and prone positions. Select images were saved. Approximate fluoroscopy time: 1 minute 46 seconds. Total images: 32.. COMPARISON: No prior imaging available for comparison. FINDINGS: The esophagus is normal in caliber without stricture, fixed intraluminal filling defect, or diverticulum. No mucosal irregularity. Multiple tertiary contractions. No significant hiatal hernia or gastroesophageal junction is widely patent with rapid free passage of contrast into the stomach. No visualized spontaneous or inducible reflux. Procedure Note Travon Buitrago MD - 07/13/2020 Exam:XR ESOPHOGRAM/BARIUM SWALLOW EXAM DATE: 07/13/2020 9:15 AM INDICATIONS: Difficulty swallowing. HISTORY: Patient reports recurrent bouts of food becoming stuck withinthe mid chest with rapid eating. Patient reports prior EGD with dilatation. TECHNIQUE: Real-time fluoroscopic evaluation of the esophagus followingthe uneventful oral administration of effervescent crystals and thick andthin barium in both the left lateral oblique, supine, and prone positions. Select images were saved. Approximate fluoroscopy time: 1 minute 46 seconds. Total images: 32.. COMPARISON: No prior imaging available for comparison. FINDINGS: The esophagus is normal in caliber without stricture, fixed intraluminal filling defect, or diverticulum. No mucosal irregularity. Multipletertiary contractions. No significant hiatal hernia or gastroesophageal junctionis widely patent with rapid free passage of contrast into the stomach. No visualized spontaneous or inducible reflux. IMPRESSION: Esophageal dysmotility without significant stricture,mucosal irregularity, or hiatal hernia. No findings of diffuse esophageal spasmor achalasia. Interpreted By: Travon Buitrago, 07/13/2020 10:41 AM Kayla Donovan MD FLUOROSCOPY Final Result * URINALYSIS MICRO ONLY (02/10/2020 8:26 AM CDT) Only the most recent of3 resultswithin the time period is included. WBC/HPF 0-5 0 - 5 /HPF 02/10/2020 10:04 AM CDT [facility] RBC/HPF NONE SEEN 0 - 5 /HPF 02/10/2020 10:04 AM CDT [facility] EPI/HPF FEW /HPF 02/10/2020 10:04 AM CDT [facility] BACTERIA (U) RARE /HPF 02/10/2020 10:04 AM CDT [facility] URINE SPECIMEN OBTAINED BY CLEAN CATCH PROCEDURE / Unknown 02/10/2020 8:26 AM CDT Kayla Donovan MD URINE ORDERABLES Final Result [facility] [address] [place] [address], [place] [phone] * MICROALBUMIN CREATININE RATIO (MICROALBUMIN/ALBUMIN) (02/10/2020 8:26 AM CDT) Only the most recent of2 resultswithin the time period is included. CREATININE (U) 52.3 28 - 217 MG/DL 02/10/2020 9:21 AM CDT [facility] MICROALBUMIN (U) 1.1 <2.0 mg/dL 02/10/20 20 9:21 AM CDT [facility] ALBUMIN/CREAT RATIO 21.0 <30.0 MG/G 02/10/2020 9:21 AM CDT [facility] URINE SPECIMEN / Unknown 02/10/2020 8:26 AM CDT Kayla Donovan MD URINE ORDERABLES Final Result [facility] [address] [place] [address], [place] [phone] * HOMOCYSTEINE (02/05/2020 8:21 AM CDT) Only the most recent of2 resultswithin the time period is included. HOMOCYSTEINE S/P/B 8.6 <10.4 umol/L 02/09/2020 5:14 AM CDT [facility] EWELINA ESPANA Comment: Homocysteine is increased by functional deficiency of folate or vitamin B12. Testing for methylmalonic acid differentiates between these deficiencies. Other causes of increased homocysteine include renal failure, folate antagonists such as methotrexate and phenytoin, and exposure to nitrous oxide. Barbara Garcia, et al. [employer] Med. 1999;131(5):331-9. Test Performed by in[employer]Johanny, [employer] [facility], [address] [place] [address] Nash Walker M.D., Ph.D., Director of Laboratories , [facility] [id number] 02/05/2020 8:21 AM CDT Kayla Donovan MD LABORATORY Final Result [facility] [address], [place] [phone] * (ABNORMAL) URINALYSIS (09/05/2019 8:33 AM SENIOR C WEB DEVELOPER) Only the most recent of2 resultswithin the time period is included. COLOR (U) YELLOW 09/05/2019 9:24 AM SENIOR C WEB DEVELOPER [facility] TRANSPARENCY CLEAR 09/05/2019 9:24 AM SENIOR C WEB DEVELOPER [facility] SPECIFIC GRAVITY (U) 1.010 1.000 - 1.030 09/05/2019 9:[address] [facility] U PH 6.0 5.0 - 9.0 09/05/2019 9:[address] [facility] LEUKOCYTES (U) 2+(A) NEGATIVE 09/05/2019 9:[address] [facility] NITRITES NEGATIVE NEGATIVE 09/05/2019 9:[address] [facility] PROTEIN (U) NEGATIVE NEGATIVE 09/05/2019 9:[address] [facility] URINE GLUCOSE NEGATIVE NEGATIVE 09/05/2019 9:[address] [facility] KETONES MG/DL (U) NEGATIVE NEGATIVE 09/05/2019 9:[address] [facility] BILIRUBIN (U) NEGATIVE NEGATIVE 09/05/2019 9:[address] [facility] BLOOD (U) NEGATIVE NEGATIVE 09/05/2019 9:[address] [facility] URINE SPECIMEN OBTAINED BY CLEAN CATCH PROCEDURE / Unknown 09/05/2019 8:33 AM SENIOR C WEB DEVELOPER us Kayla Donovan MD URINE ORDERABLES Final Result Performing Organization Address City/State/[facility] Co de Phone Number [facility] [address] [place] [address], * HEPATIC FUNCTION PANEL (03/19/2019 8:16 AM CDT) Only the most recent of3 resultswithin the time period is included. TOTAL PROTEIN S/P/B 7.2 6.4 - 8.2 G/DL 03/19/2019 8:51 AM CDT [facility] ALBUMIN S/P/B 3.6 3.4 - 5.0 G/DL 03/19/2019 8:51 AM CDT [facility] BILIRUBIN TOTAL S/P/B 0.5 0.2 - 1.2 MG/DL 03/19/2019 8:51 AM CDT [facility] BILIRUBIN DIRECT S/P/B 0.1 0.0 - 0.20 MG/DL 03/19/2019 8:51 AM CDT [facility] BILIRUBIN INDIRECT S/P/B 0.4 0.0 - 0.9 MG/DL 03/19/2019 8:51 AM CDT [facility] ALKALINE PHOSPHATASE S/P/B 69 50 - 136 U/L 03/19/2019 8:51 AM CDT [facility] AST 16 15 - 37 U/L 03/19/2019 8:51 AM CDT [facility] ALT 18 14 - 55 U/L 03/19/2019 8:51 AM T [facility] A/G RATIO 1.0 1.0 - 2.0 RATIO 03/19/2019 8:51 AM T [facility] 03/19/2019 8:16 AM CDT Kayla Donovan MD LABORATORY Final Result [facility] [address] [place] [phone], * (ABNORMAL) CBC, AUTO, NO DIFF (04/26/2018 9:02 AM CDT) Only the most recent of3 resultswithin the time period is included. WBC 6.9 4.4 - 11.0 x10'3/uL 04/26/2018 9:28 AM T [facility] RBC 4.03(L) 4.50 - 5.10 x10'6/uL 04/26/2018 9:28 AM T [facility] HGB 12.5 12.3 - 15.3 G/DL 04/26/2018 9:28 AM CDT [facility] HCT 37.2 35.9 - 44.6 % 04/26/2018 9:28 AM CDT [facility] MCV 92.3 80.0 - 96.0 FL 04/26/2018 9:28 AM CDT [facility] MCH 31.0(H) 25.3 - 30.9 PG 04/26/2018 9:28 AM CDT [facility] MCHC 33.6 31.0 - 34.1 G/DL 04/26/2018 9:28 AM CDT [facility] RDW 11.9(L) 12.4 - 15.1 % 04/26/2018 9:28 AM CDT [facility] PLT 289 151 - 353 x10'3/uL 04/26/2018 9:28 AM T [facility] MPV 9.3(L) 9.6 - 12.0 FL 04/26/2018 9:28 AM T [facility] 04/26/2018 9:02 AM CDT 04/26/2018 9:03 AM CDT us Generic Conversion Md [facility] Final R esult [facility] [address] [place] [address], * (ABNORMAL) LIPID W/CALC LDL (11/22/2017 10:27 AM CDT) Only the most recent of3 resultswithin the time period is included. CHOLESTEROL 154 <200 MG/DL 11/22/2017 11:24 AM CDT [facility] TRIGLYCERIDES 106 <150 MG/DL 11/22/2017 11:24 AM CDT [facility] HDL 49(L) >55 MG/DL 11/22/2017 11:24 AM CDT [facility] LDL (CALCULATED) 83.8 <130 MG/L 11/23/19 18 11:24 AM CDT [facility] CHOL/HDL RATIO 3.1 11/22/2017 11:24 AM CDT [facility] Comment: INTERPRETATION OF RESULTSNHLBI RECOMMENDED RANGES CHOLESTEROL MG/DL LDL MG/DL DESIRABLE <200 <130 BORDERLINE 200-239 130-159 HIGH RISK >240 >160 REFERENCE VALUE FOR HDL CHOLESTEROL RISK LEVEL MALE MG/DL FEMALE MG/DL DECREASED >45 >55 AVERAGE 45 55 INCREASED <45 <55 11/22/2017 10:2 7 AM CDT 11/22/2017 10:28 AM CDT us Generic Conversion Md [facility] Final R esult Performing Organization Address City/[facility]/ZIP Co de Phone Number [facility] [address] [place] [address], * POCT glucose (04/17/2017 7:15 AM CDT) [facility] GLUCOSE POC 90 70 - 110 mg/dL 04/17/2017 11:25 AM CDT [facility] ORDERS INTERFACE 04/17/2017 7:15 AM CDT 04/17/2017 11:25 AM CDT us Generic Conversion Md MARQUEZ POCT ORDERABLES - DEVIC E Final Result [facility] ORDERS INTERFACE US Visit Diagnoses Diagnosis Start Date Other screening mammogram 06/24/2013 Type 2 or unspecified type diabetes mellitus ([facility]/HCC) 06/25/2013 Type 2 or unspecified type diabetes mellitus ([facility]) 10/20/2013 Benign essential hypertension Essential hypertension, benign 04/28/2014 General medical examination Unspecified general medical examination 09/04/2014 Screening for malignant neoplasm of cervix Screening for malignant neoplasm of the cervix 11/03/2014 Other screening mammogram 11/12/2014 Other and unspecified hyperlipidemia 02/28/2015 Closed fracture of shaft of clavicle 03/12/2015 Contusion of lower back and pelvis, initial encounter 06/23/2015 Encounter for general adult medical examination without abnormal findings Unspecified general medical examination 06/28/2015 Essential (primary) hypertension Unspecified essential hypertension 11/11/2015 Encounter for screening mammogram for malignant neoplasm of breast Other screening mammogram 01/25/2016 Essential (primary) hypertension Unspecified essential hypertension 04/12/2016 Essential (primary) hypertension Unspecified essential hypertension 09/12/2016 Essential (primary) hypertension Unspecified essential hypertension 02/18/2017 Food in pharynx causing other injury, initial encounter 03/01/2017 Dysphagia Dysphagia, unspecified 04/17/2017 Essential (primary) hypertension Unspecified essential hypertension 06/24/2017 Essential (primary) hypertension Unspecified essential hypertension 11/22/2017 Encounter for screening mammogram for malignant neoplasm of breast Other screening mammogram 12/31/2017 Type 2 diabetes mellitus without complications ([facility] HHS/[facility]) Type II or unspecified type diabetes mellitus without mention of complication, not stated as uncontrolled 04/26/2018 Procedure and treatment not carried out, unspecified reason 04/30/2018 Essential (primary) hypertension Unspecified essential hypertension 09/08/2018 Diabetes mellitus ([facility]) Type II or unspecified type diabetes mellitus without mention of complication, not stated as uncontrolled 03/19/2019 Diabetes mellitus ([facility]) Type II or unspecified type diabetes mellitus without mention of complication, not stated as uncontrolled 03/19/2019 Encounter for long-term (current) drug use Encounter for long-term (current) use of other medications 06/11/2019 Benign hypertension Essential hypertension, benign 06/11/2019 Encounter for MEKHI (erythropoietin stimulating agent) anemia management Encounter for long-term (current) use of other medications 06/11/2019 Encounter for MEKHI (erythropoietin stimulating agent) anemia management Encounter for long-term (current) use of other medications 06/11/2019 Encounter for long-term (current) drug use Encounter for long-term (current) use of other medications 06/11/2019 Benign hypertension Essential hypertension, benign 06/11/2019 Essential hypertension, malignant 09/05/2019 Encounter for long-term (current) use of other medications 09/05/2019 Mixed hyperlipidemia 09/05/2019 Diabetes mellitus ([facility]) Type II or unspecified type diabetes mellitus without mention of complication, not stated as uncontrolled 09/05/2019 Essential hypertension, malignant 09/05/2019 Encounter for long-term (current) use of other medications 09/05/2019 Mixed hyperlipidemia 09/05/2019 Diabetes mellitus ([facility]) Type II or unspecified type diabetes mellitus without mention of complication, not stated as uncontrolled 09/05/2019 Hypouricemia Other abnormal blood chemistry 02/05/2020 Hypouricemia Other abnormal blood chemistry 02/05/2020 Diabetes mellitus ([facility]) Type II or unspecified type diabetes mellitus without mention of complication, not stated as uncontrolled 02/10/2020 Mixed hyperlipidemia 02/10/2020 Encounter for long-term (current) use of other medications 02/10/2020 Diabetes mellitus ([facility]) Type II or unspecified type diabetes mellitus without mention of complication, not stated as uncontrolled 02/10/2020 Mixed hyperlipidemia 02/10/2020 Encounter for long-term (current) use of other medications 02/10/2020 Memory loss 02/15/2020 Iron deficiency anemia secondary to inadequate dietary iron intake 06/28/2020 Need for prophylactic chemotherapy Need for other prophylactic chemotherapy 06/28/2020 Iron deficiency anemia secondary to inadequate dietary iron intake 06/28/2020 Need for prophylactic chemotherapy Need for other prophylactic chemotherapy 06/28/2020 Difficulty swallowing Dysphagia, unspecified 07/13/2020 Need for prophylactic vaccination against viral disease Need for prophylactic vaccination and inoculation against other viral diseases 09/07/2020 Need for prophylactic vaccination against viral disease Need for prophylactic vaccination and inoculation against other viral diseases 10/05/2020 [place] [facility] [place] drug therapy 11/08/2020 Vitamin D deficiency Unspecified vitamin D deficiency 11/08/2020 Diabetes mellitus without complication ([facility]) Type II or unspecified type diabetes mellitus without mention of complication, not stated as uncontrolled 11/08/2020 Essential hypertension Unspecified essential hypertension 11/08/2020 Mixed hyperlipidemia 11/08/2020 Other [place] [facility] [place]current[place] drug therapy 11/08/2020 Vitamin D deficiency Unspecified vitamin D deficiency 11/08/2020 Diabetes mellitus without complication ([facility] [facility] Type II or unspecified type diabetes mellitus without mention of complication, not stated as uncontrolled 11/08/2020 Essential hypertension Unspecified essential hypertension 11/08/2020 Mixed hyperlipidemia 11/08/2020 Anemia, unspecified 11/11/2020 Anemia, unspecified 11/11/2020 Anemia, unspecified 11/11/2020 Anemia, unspecified 11/13/2020 Anemia, unspecified 11/14/2020 Anemia, unspecified 11/15/2020 Anemia, unspecified 11/15/2020 Anemia, unspecified 11/15/2020 Other giant cell arteritis ([facility]) 12/05/2020 Other giant cell arteritis ([facility]) 12/05/2020 Other giant cell arteritis ([facility]) 01/10/2021 Other giant cell arteritis ([facility]) 01/10/2021 Other giant cell arteritis ([facility]) 02/02/2021 Other giant cell arteritis ([facility]) 02/02/2021 Other giant cell arteritis ([facility]) 03/07/2021 Other giant cell arteritis ([facility]) 03/16/2021 Diarrhea 03/20/2021 Iron deficiency anemia, unspecified 03/20/2021 Iron deficiency anemia, unspecified 03/20/2021 Diarrhea 03/20/2021 Other iron deficiency anemia 04/14/2021 Other giant cell arteritis ([facility]) 04/14/2021 Other iron deficiency anemia 04/14/2021 Giant cell arteritis ([facility]) Giant cell arteritis 08/25/2021 Encounter for long-term (current) drug use Encounter for long-term (current) use of other medications 08/25/2021 Type 2 diabetes mellitus ([facility]) Type II or unspecified type diabetes mellitus without mention of complication, not stated as uncontrolled 08/25/2021 Mixed hyperlipidemia 08/25/2021 Essential (primary) hypertension Unspecified essential hypertension 08/25/2021 Other iron deficiency anemias 08/25/2021 Vitamin D deficiency Unspecified vitamin D deficiency 08/25/2021 Other giant cell arteritis ([facility]) 08/25/2021 Giant cell arteritis ([facility]) Giant cell arteritis 08/25/2021 Encounter for long-term (current) drug use Encounter for long-term (current) use of other medications 08/25/2021 Type 2 diabetes mellitus ([facility]) Type II or unspecified type diabetes mellitus without mention of complication, not stated as uncontrolled 08/25/2021 Mixed hyperlipidemia 08/25/2021 Essential (primary) hypertension Unspecified essential hypertension 08/25/2021 Other iron deficiency anemias 08/25/2021 Vitamin D deficiency Unspecified vitamin D deficiency 08/25/2021 Iron deficiency anemia, unspecified 11/01/2021 Iron deficiency anemia, unspecified 11/01/2021 Encounter for long-term (current) drug use Encounter for long-term (current) use of other medications 12/15/2021 Encounter for long-term (current) drug use Encounter for long-term (current) use of other medications 12/15/2021 Dementia of the Alzheimer's type, with late onset, with delirium ([facility]) Alzheimer's disease 12/21/2021 Need for prophylactic chemotherapy Need for other prophylactic chemotherapy 01/05/2022 Need for prophylactic chemotherapy Need for other prophylactic chemotherapy 01/05/2022 Essential (primary) hypertension Unspecified essential hypertension 01/18/2022 Encounter for long-term (current) drug use Encounter for long-term (current) use of other medications 01/18/2022 Encounter for screening for other suspected endocrine disorder 01/18/2022 Type 2 diabetes mellitus without complication ([facility]) 01/18/2022 Mixed hyperlipidemia 01/18/2022 Other iron deficiency anemia 01/18/2022 Abnormal weight loss Loss of weight 01/18/2022 Vitamin D deficiency Unspecified vitamin D deficiency 01/18/2022 Essential (primary) hypertension Unspecified essential hypertension 01/18/2022 Encounter for long-term (current) drug use Encounter for long-term (current) use of other medications 01/18/2022 Encounter for screening for other suspected endocrine disorder 01/18/2022 Type 2 diabetes mellitus without complication ([facility]) 01/18/2022 Mixed hyperlipidemia 01/18/2022 Other iron deficiency anemia 01/18/2022 Abnormal weight loss Loss of weight 01/18/2022 Vitamin D deficiency Unspecified vitamin D deficiency 01/18/2022 Abnormal weight loss Loss of weight 01/29/2022 Abnormal loss of weight Loss of weight 01/29/2022 Diabetes mellitus ([facility]) Type II or unspecified type diabetes mellitus without mention of complication, not stated as uncontrolled 06/18/2022 Encounter for long-term (current) drug use Encounter for long-term (current) use of other medications 06/18/2022 Vitamin B12 deficiency (non anemic) Other B-complex deficiencies 06/18/2022 Mixed hyperlipidemia 06/18/2022 Essential hypertension, malignant 06/18/2022 Vitamin D deficiency Unspecified vitamin D deficiency 06/18/2022 Diabetes mellitus ([facility]) Type II or unspecified type diabetes mellitus without mention of complication, not stated as uncontrolled 06/18/2022 Encounter for long-term (current) drug use Encounter for long-term (current) use of other medications 06/18/2022 Vitamin B12 deficiency (non anemic) Other B-complex deficiencies 06/18/2022 Mixed hyperlipidemia 06/18/2022 Essential hypertension, malignant 06/18/2022 Vitamin D deficiency Unspecified vitamin D deficiency 06/18/2022 Mixed hyperlipidemia 11/07/2022 Essential (primary) hypertension Unspecified essential hypertension 11/07/2022 Encounter for long-term (current) drug use Encounter for long-term (current) use of other medications 11/07/2022 Diabetes mellitus ([facility]) Type II or unspecified type diabetes mellitus without mention of complication, not stated as uncontrolled 11/07/2022 Mixed hyperlipidemia 11/07/2022 Essential (primary) hypertension Unspecified essential hypertension 11/07/2022 Encounter for long-term (current) drug use Encounter for long-term (current) use of other medications 11/07/2022 Diabetes mellitus ([facility]) Type II or unspecified type diabetes mellitus without mention of complication, not stated as uncontrolled 11/07/2022 Injury of face Injury of face and neck 11/30/2022 Head injury Head injury, unspecified 11/30/2022 Encounter for screening mammogram for malignant neoplasm of breast Other screening mammogram 02/25/2023 Viral gastroenteritis Intestinal infection due to other organism, not elsewhere classified 03/09/2023 Encounter for long-term (current) use of medications Encounter for long-term (current) use of other medications 04/30/2023 Encounter for screening for other suspected endocrine disorder 04/30/2023 Vitamin D deficiency Unspecified vitamin D deficiency 04/30/2023 Essential (primary) hypertension Unspecified essential hypertension 04/30/2023 Type 2 diabetes mellitus without complication ([facility]) 04/30/2023 Mixed hyperlipidemia 04/30/2023 Encounter for long-term (current) use of medications Encounter for long-term (current) use of other medications 04/30/2023 Encounter for screening for other suspected endocrine disorder 04/30/2023 Vitamin D deficiency Unspecified vitamin D deficiency 04/30/2023 Essential (primary) hypertension Unspecified essential hypertension 04/30/2023 Type 2 diabetes mellitus without complication ([facility]) 04/30/2023 Mixed hyperlipidemia 04/30/2023 Hyperlipemia Other and unspecified hyperlipidemia 09/10/2023 Essential hypertension, malignant 09/10/2023 Diabetes mellitus ([facility]) Type II or unspecified type diabetes mellitus without mention of complication, not stated as uncontrolled 09/10/2023 Hyperlipemia Other and unspecified hyperlipidemia 09/10/2023 Essential hypertension, malignant 09/10/2023 Diabetes mellitus ([facility]) Type II or unspecified type diabetes mellitus without mention of complication, not stated as uncontrolled 09/10/2023 Encounter for long-term (current) drug use Encounter for long-term (current) use of other medications 01/27/2024 Encounter for screening for other suspected endocrine disorder 01/27/2024 Essential (primary) hypertension Unspecified essential hypertension 01/27/2024 Diabetes mellitus without complication ([facility]) Type II or unspecified type diabetes mellitus without mention of complication, not stated as uncontrolled 01/27/2024 Hyperlipidemia Other and unspecified hyperlipidemia 01/27/2024 Encounter for long-term (current) drug use Encounter for long-term (current) use of other medications 01/27/2024 Encounter for screening for other suspected endocrine disorder 01/27/2024 Essential (primary) hypertension Unspecified essential hypertension 01/27/2024 Diabetes mellitus without complication ([facility]) Type II or unspecified type diabetes mellitus without mention of complication, not stated as uncontrolled 01/27/2024 Hyperlipidemia Other and unspecified hyperlipidemia 01/27/2024 Encounter for long-term (current) drug use Encounter for long-term (current) use of other medications 09/10/2024 Other iron deficiency anemia 09/10/2024 Anemia, unspecified 09/10/2024 Diabetes mellitus, type II ([facility]) Type II or unspecified type diabetes mellitus without mention of complication, not stated as uncontrolled 09/10/2024 Hyperlipidemia Other and unspecified hyperlipidemia 09/10/2024 Vitamin D deficiency Unspecified vitamin D deficiency 09/10/2024 Encounter for long-term (current) drug use Encounter for long-term (current) use of other medications 09/11/2024 Other iron deficiency anemia 09/11/2024 Anemia, unspecified 09/11/2024 Diabetes mellitus, type II ([facility]) Type II or unspecified type diabetes mellitus without mention of complication, not stated as uncontrolled 09/11/2024 Hyperlipidemia Other and unspecified hyperlipidemia 09/11/2024 Vitamin D deficiency Unspecified vitamin D deficiency 09/11/2024 Essential (primary) hypertension Unspecified essential hypertension 01/21/2025 Other iron deficiency anemias 01/21/2025 Diabetes mellitus without complication ([facility]) Type II or unspecified type diabetes mellitus without mention of complication, not stated as uncontrolled 01/21/2025 Essential (primary) hypertension Unspecified essential hypertension 01/21/2025 Other iron deficiency anemias 01/21/2025 Diabetes mellitus without complication ([facility]) Type II or unspecified type diabetes mellitus without mention of complication, not stated as uncontrolled 01/21/2025 Care Teams Leverman Relationship Specialty Start Date End Date Kayla Donovan MD [id number] - [address] [id number] PCP - General INTERNAL MEDICINE 06/11/19
[2025-03-24 10:15] LABS: Hematocrit 36.0 % (37.0-47.0); Hemoglobin 11.7 g/dL (12.0-15.0); Immature Granulocyte Percent A 0.4 % (0-0.5); Lymphocytes Absolute Auto 1.48 K/mm3 (0.9-3.2); Mean Corpuscular HGB Conc 32.5 g/dl (32-36); Mean Corpuscular Hemoglobin 30.7 pg (26-34); Mean Corpuscular Volume 94.5 fl (80-100); Nucleated Red Blood Cells Absolute Auto 0.000 K/mm3 (0.0-0.012); Nucleated Red Blood Cells Perc 0.0 % (0.0-0.2); Platelet Count Result 162 k/mm3 (150-375); Red Blood Count 3.81 M/mm3 (4.2-5.4); White Blood Count 9.3 K/mm3 (4.5-10.0)
[2025-03-24 10:34] LABS: INR 1.2; Prothrombin Time 14.9 Seconds (11.1-14.7)
== END 2025-03-24 09:49 | disposition home or self-care (01) ==
LOC: ANHIMG 09:49
PROVIDERS: PCP Internal Medicine; Visit Provider Internal Medicine
DX: I82.412 Acute embolism and thrombosis of left femoral vein (principal)
CPT/HCPCS: 36415; 85025; 85380; 85610; 93971

== ENCOUNTER 2025-08-11 10:18 | Outpatient (CLI) | payer MEDICARE, SELFPAY ==
--- NOTE | ~2025-08-11 | US_ITS ---
EXAMINATION: US venous doppler [facility] DATE: 08/11/2025 11:19 INDICATION: Personal history of other venous thrombosis. TECHNIQUE: Grayscale ultrasound images without and with compression and Doppler ultrasound images of the left lower extremity veins were obtained. COMPARISON: Ultrasound 03/24/2025 FINDINGS: The visualized portions of left common femoral vein, profunda (deep) femoral vein, femoral vein, popliteal vein, peroneal veins, posterior tibial veins, and greater saphenous vein outflow are patent. IMPRESSION: 1. No deep venous thrombosis. Reviewed, dictated and finalized at location [facility]
--- OUTSIDE RECORDS SUMMARY | 2025-08-11 11:41 | XMS_ITS | Clinical Summary ---
Author Organization [facility] Address [address], [facility] [address] [place] [address] Phone Care Team Providers Care Reconditioner Name Role Phone Spenser Meyer MD Primary Care Provider [phone] Noah Hemphill DO Unavailable [phone] Allergies No known active allergies Medications [...] Health Maintenance Due Date Last Done Comments Hepatitis C Virus (HCV) Screening 1950 TdaP Immunization 1950 Cologuard 1996 Immunochemical Fecal Occult Blood 1996 Pneumococcal Immunization (5 0+ years) (1 of 1 - PCV) 2001 Zoster Immunization (1 of 2) 2001 Colonoscopy 01/24/2022 01/24/2017 Colorectal Cancer Screening 01/24/2022 Influenza Immunization (#1) 2025 SARS-COV-2 Immunization ( - season) 2025 Respiratory Syncytial Virus (RSV) Immunization (Adult) (1 - 1-dose 75+ series) 2026 Hepatitis B Immunization Aged Out No longer eligible based on patient's age to complete this topic Human Papillomavirus (HPV) Immunization Aged Out No longer eligible b ased on patient's age to complete this topic Meningococcal Immunization (ACWY) Aged Out No longer eligible based on patient's age to complete this topic Rotavirus Immunization Aged Out No lo nger eligible based on patient's age to complete this topic Procedures Procedure Name Priority Date/Time Associated Diagnosis Comments COLONOSCOPY Routine 01/24/2017 from Last 3 Months or Most Recently Relevant to Health Maintenance Results * COLONOSCOPY (01/24/2017) Spenser Meyer MD PROCEDURE/MINOR SURGICAL ORDER AVE Final Result from Last 3 Months or Most Recently Relevant to Health Maintenance Insurance Care Teams Reconditioner Relationship Specialty Start Date End Date Spenser Meyer MD PCP - General Internal Medicine 09/26/16 Noah Hemphill DO Consulting Physician Gastroenterology 01/24/17
--- OUTSIDE RECORDS SUMMARY | 2025-08-11 11:41 | XMS_ITS | Clinical Summary ---
Author Organization [facility] [address] Address [address] [address] Care Team Providers Care Community Service Manager Name Role Phone Spenser Meyer MD Primary Care Provider [phone] Allergies Active Allergy Reactions Criticality Noted Date [...] Medical History Date Comments Hypertension Diabetes mellitus Family History Medical History Relation Name Comments Alzheimer's disease Father onset mi d 70s, age 80 Relation Name Status Comments Father Social History Tobacco Use Types Packs/Day Years Used Date Smoking Tobacco: Never Tobacco Cessation:Counseling Given: Not Answered Comments Unknown Sex and Gender Information Value Date Recorded Sex Assigned at Not on file Legal Sex 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 Gender Identity Not on file Sexual Orientation Not on file Occupation Industry Job 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 End 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[employer], 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 Not on file Not on file [...] 59 kg (130 lb) 08/22/2023 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 Height 154.9 cm (5' 0.98) 08/22/2023 10:[address] Body Mass Index 24.58 08/22/2023 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 Plan of Treatment Health Maintenance Due Date Last Done Comments Breast Cancer Screening-Mammogram 1950 Colon Cancer Screening-Colonoscopy 1950 Depression Screening 1950 Fall Risk Assessment 1950 Hepatitis C Screening 1950 Osteoporosis Screening-Bone Density Scan 1950 DTaP/Tdap/Td Vaccine (1 - Tdap) 1962 Hepatitis B Screening 1969 Well Visit 65+ 2016 Covid-19 Vaccine (6 - 2024-2 6 season) 2025 06/21/2022, 02/23/2022, 07/19/2021, Additional history exists Influenza Vaccine (#1) 2025 07/17/2022 Zoster Vaccine Completed 03/31/2018, 12/09, 10/21/2017 Pneumococcal vaccine 65+ Completed 06/26/2021, 09/09 Insurance [facility] MEDICARE T MEDICARE Care Teams Community Service Manager Relationship Specialty Start Date End Date Spenser Meyer MD PCP - General Internal Medicine 12/04/22
== END 2025-08-11 10:19 | disposition home or self-care (01) ==
PROVIDERS: PCP Internal Medicine; Visit Provider Internal Medicine
DX: Z86.718 Personal history of other venous thrombosis and embolism (principal)
CPT/HCPCS: 93971